=== PATIENT | female | born 2005 | race Hispanic/Latino ===

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

== ENCOUNTER 2023-05-05 18:31 | Emergency (ER) | payer SELFPAY ==
--- OUTSIDE RECORDS SUMMARY | 2023-05-05 18:33 | XMS REPORT | Continuity of Care Document ---
:2005 Author Organization [facility] t Address [address] [place] [address] Care Team Providers Name Role Phone ARSLAN RUBIN Attending Clinician Unavailable Problems This patient has no known problems. Allergies, Adverse Reactions, Alerts Allergy Allergy Status Severity Reaction(s) Onset Inactive Treating Comm ents Source Name Type Date Date Clinician NO KNOWN Drug [facility]ations This patient has no known medications. Procedures This patient has no known procedures. Encounters Start End Encounter Admission Attending Care Care Encounter Source Date/Time Date/Time Type Type Clinicians Facility Department ID 2019-09-15 2019-09-15 Emergency X KARIN RUBIN ERT [id number] [facility] 08:21:01 10:06:00 ARSLAN [facility] Results This patient has no known results.
--- NOTE | 2023-05-05 19:19 | ER ---
Nurse's Notes [facility] Name: Suzanne Hernandez Age: 17 yrs Sex: Female : 2005 Arrival Date: 05/05/2023 Time: 18:31 Bed DX4 Private MD: Diagnosis: Viral infection, unspecified Presentation: 05/05 18:40 Chief complaint: Patient states: Sore throat, not feeling well. Coronavirus screen: ld1 Vaccine status: Patient reports receiving the 2nd dose of the covid vaccine. Client denies travel out of the [place] in the last 14 days. fatigue, headache, sore throat. Ebola Screen: Patient denies travel to an Ebola-affected area in the 21 days before illness onset. Initial Sepsis Screen: Does the patient meet any 2 criteria? No. Patient's initial sepsis screen is negative. Does the patient have a suspected source of infection? Yes: Other: sore throat. Risk Assessment: Do you want to hurt yourself or someone else? Patient reports no desire to harm self or others. Onset of symptoms was May 04, 2023. 18:40 Method Of Arrival: Ambulatory ld1 18:40 Acuity: ANTIONE 4 ld1 Historical: - Allergies: 18:42 No Known Allergies; ld1 - PMHx: 18:42 allergies; ld1 - PSHx: 18:42 None; ld1 - Immunization history:: Adult Immunizations up to date, Client reports receiving the 2nd dose of the Covid vaccine. - Social history:: Smoking status: Reported history of juuling and/or vaping. Screenin:51 [facility] ED Fall Risk Assessment (Adult) History of falling in the last 3 months, kl including since admission No falls in past 3 months (0 pts) Confusion or Disorientation No (0 pts) Intoxicated or Sedated No (0 pts) Impaired Gait No (0 pts) Mobility Assist Device Used No (0 pt) Altered Elimination No (0 pt) Score/Fall Risk Level 0 - 2 = Low Risk Oriented to surroundings, Maintained a safe environment. Abuse screen: Denies threats or abuse. Nutritional screening: No deficits noted. Tuberculosis screening: No symptoms or risk factors identified. Assessment: 19:50 General: Appears in no apparent distress. comfortable, Behavior is calm, cooperative. kl Pain: Complains of pain in throat. Neuro: No deficits noted. Cardiovascular: No deficits noted. Respiratory: No deficits noted. GI: No deficits noted. No signs and/or symptoms were reported involving the gastrointestinal system. : No deficits noted. No signs and/or symptoms were reported regarding the genitourinary system. EENT: Reports difficulty swallowing. Vital Signs: 18:40 BP 127 / 75; Pulse 83; Resp 18; Temp 98.2; Pulse Ox 100% ; Weight 77.11 kg; Height 5 ld1 ft. 2 in. ; 18:40 Body Mass Index 31.09 (77.11 kg, 157.48 cm) - Percentile 94.6 % ld1 ED Course: 18:33 Patient arrived in ED. im 18:33 Clarisse Kumar FNP-C is [facility]. snw 18:33 Ronal Vickers MD is Attending Physician. snw 18:41 Triage completed. ld1 18:42 Arm band placed on. ld1 18:42 Strep Sent. ld1 18:42 Flu Sent. ld1 18:55 Strep Sent. kj1 18:55 Flu Sent. kj1 19:52 No provider procedures requiring assistance completed. Patient did not have IV access kl during this emergency room visit. Administered Medications: 19:37 Drug: Decadron - Dexamethasone IVP 10 mg IVP once; please give po in small amt kl juice/water {Note: po.} Route: IVP; Site: Other; 19:50 Follow up: Response: No adverse reaction Outcome: 19:19 Discharge ordered by . sn 19:52 Discharged to home ambulatory, 19:52 Condition: stable 19:52 Discharge instructions given to patient, Instructed on discharge instructions, follow up and referral plans. Demonstrated understanding of instructions, follow-up care, 19:52 Patient left the ED. kl Signatures: Aubree Fernandes, RN RN Clarisse Marion FNP-C FNP-[place] Elizabeth kj1 Linda Resendez RN RN ld1 Cheryl Whitehead
--- NOTE | 2023-05-05 19:20 | EDPHYS ---
Physician Documentation [facility] Name: Suzanne Hernandez Age: 17 yrs Sex: Female : 2005 Arrival Date: 05/05/2023 Time: 18:31 Bed DX4 Private MD: ED Physician Ronal Vickers HPI: 05/05 18:43 This 17 yrs old Female presents to ER via Ambulatory with complaints of Flu snw Symptoms. 18:43 The patient presents with sore throat. The patient describes throat pain as scratchy. snw Onset: The symptoms/episode began/occurred acutely, 3 day(s) ago, and became persistent. Associated signs and symptoms: Pertinent positives: flu-like symptoms, Sore throat. The patient has not experienced similar symptoms in the past, but friend has similar symptoms. The patient has not recently seen a physician. 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 Historical: - Allergies: 18:42 No Known Allergies; ld1 - PMHx: 18:42 allergies; ld1 - PSHx: 18:42 None; ld1 - Immunization history:: Adult Immunizations up to date, Client reports receiving the 2nd dose of the Covid vaccine. - Social history:: Smoking status: Reported history of juuling and/or vaping. ROS: 18:42 Eyes: Negative for injury, pain, redness, and discharge, snw 18:42 Neck: Negative for injury, pain, and swelling, Cardiovascular: Negative for chest pain, palpitations, and edema, Respiratory: Negative for shortness of breath, cough, wheezing, and pleuritic chest pain, Abdomen/GI: Negative for abdominal pain, nausea, vomiting, diarrhea, and constipation, Back: Negative for injury and pain, : Negative for injury, bleeding, discharge, and swelling, MS/Extremity: Negative for injury and deformity, Skin: Negative for injury, rash, and discoloration, Neuro: Negative for headache, weakness, numbness, tingling, and seizure, Psych: Negative for depression, anxiety, suicide ideation, homicidal ideation, and hallucinations, 18:42 Constitutional: Positive for body aches, malaise, 18:42 ENT: Positive for sinus congestion, sore throat, Exam: 18:41 Head/Face: Normocephalic, atraumatic. Eyes: Pupils equal round and reactive to light, snw extra-ocular motions intact. Lids and lashes normal. Conjunctiva and sclera are non-icteric and not injected. Cornea within normal limits. Periorbital areas with no swelling, redness, or edema. 18:41 Chest/axilla: Normal chest wall appearance and motion. Nontender with no deformity. No lesions are appreciated. Cardiovascular: Regular rate and rhythm with a normal S1 and S2. No gallops, murmurs, or rubs. Normal PMI, no JVD. No pulse deficits. Respiratory: Lungs have equal breath sounds bilaterally, clear to auscultation and percussion. No rales, rhonchi or wheezes noted. No increased work of breathing, no retractions or nasal flaring. Abdomen/GI: Soft, non-tender, with normal bowel sounds. No distension or tympany. No guarding or rebound. No evidence of tenderness throughout. Back: No spinal tenderness. No costovertebral tenderness. Full range of motion. Skin: Warm, dry with normal turgor. Normal color with no rashes, no lesions, and no evidence of cellulitis. MS/ Extremity: Pulses equal, no cyanosis. Neurovascular intact. Full, normal range of motion. Neuro: Awake and alert, GCS 15, oriented to person, place, time, and situation. Cranial nerves II-XII grossly intact. Motor strength 5/5 in all extremities. Sensory grossly intact. Cerebellar exam normal. Normal gait. 18:41 Constitutional: The patient appears alert, awake, 18:41 ENT: TM's: are normal, Nose: is normal, Posterior pharynx: swelling, that is mild, erythema, that is moderate, Voice: is normal, 18:41 Neck: Lymph nodes: lymphadenopathy is appreciated, anterior cervical nodes, Vital Signs: 18:40 BP 127 / 75; Pulse 83; Resp 18; Temp 98.2; Pulse Ox 100% ; Weight 77.11 kg; Height 5 ld1 ft. 2 in. ; 18:40 Body Mass Index 31.09 (77.11 kg, 157.48 cm) - Percentile 94.6 % ld1 MDM: 18:41 Patient medically screened. snw 19:20 Differential diagnosis: bronchitis, group A strep tonsillitis, influenza, viral snw syndrome. Data reviewed: vital signs, nurses notes. Counseling: I had a detailed discussion with the patient and/or guardian regarding the historical points, exam findings, and any diagnostic results supporting the discharge/admit diagnosis, lab results, the need for outpatient follow up, for definitive care, to return to the emergency department if symptoms worsen or persist or if there are any questions or concerns that arise at home. Special discussion: Based on the history and exam findings, there is no indication for further emergent testing or inpatient evaluation. I discussed with the patient/guardian the need to see the primary care provider for further evaluation of the symptoms. 05/05 18:40 Order name: Flu; Complete Time: 19:28 snw 05/05 18:40 Order name: Strep; Complete Time: 19:18 snw 05/05 19:16 Order name: Throat Culture EDMS Administered Medications: 19:37 Drug: Decadron - Dexamethasone IVP 10 mg IVP once; please give po in small amt kl juice/water {Note: po.} Route: IVP; Site: Other; 19:50 Follow up: Response: No adverse reaction kl Disposition: 20:17 Co-signature as Attending Physician, Ronal Vickers MD I reviewed the patient's care rt provided by the Advanced Practice Provider and agree with the diagnosis and treatment plan. Disposition Summary: 05/05/23 19:19 Discharge Ordered Notes: Location: Home snw Condition: Stable snw Diagnosis - Viral infection, unspecified snw Followup: snw - With: Emergency Department - When: As needed - Reason: Worsening of condition Followup: snw - With: Private Physician - When: 2 - 3 days - Reason: Recheck today's complaints, Continuance of care, Re-evaluation by your physician Discharge Instructions: - Discharge Summary Sheet snw - Viral Respiratory Infection snw Forms: - Work release form snw - Medication Reconciliation Form snw - Thank You Letter snw - Antibiotic Education snw - Prescription Opioid Use snw - Patient Portal Instructions snw - Leadership Thank You Letter snw Signatures: Dispatcher [employer] Aubree Sadler RN RN kl Waters, Shelly, FNP-C INTERNET SALES CONSULTANT-Csnw Linda Resendez RN RN [email or web address] Ronal Vickers MD MD rt
[2023-05-05] MEDS ORDERED: dexAMETHasone 10 MG/ML VIAL ONE (19:44)
[2023-05-05 21:37] VITALS: BP 127/75; TEMP 98.2; O2SAT 100
== END 2023-05-05 19:52 | disposition home or self-care (01) ==
LOC: ER 18:31
DX: B34.9 Viral infection, unspecified (principal)
CPT/HCPCS: 87070; 87081; 87804; 96374; 99284; J1100

== ENCOUNTER 2023-11-16 20:14 | Emergency (ER) | payer SELFPAY ==
--- OUTSIDE RECORDS SUMMARY | 2023-11-16 20:18 | XMS REPORT | Continuity of Care Document ---
Author Name Unknown Address [address] [facility] [address] [place] [address] [facility] thconnect Address [address] [facility] [address] [facility] [address] [place] [address] Care Team Providers Care First Grade Teacher Name Role Phone PCP, PATIENT DOES NOT HAVE A Primary Care Physic scooter Unavailable CRISTIAN CAMP Attending Clinician Unavailable Cristian Camp MD Attending Clinician ARSLAN LANDON Attending Clinician Unavailable Arslan Landon MD Attending Clinician [phone] Belinda Clarke DO Attending Clinician [phone] BELINDA CLARKE Attending Clinician Unavailable Payers Payer Name Policy Type Policy Number Effective Date Expirati on Date Source [facility] [id number] 2020 00:00:00 Allergies, Adverse Reactions, Alerts Allergy Name Allergy Type Status Severity Reaction(s) Onset Date Inactive Date Treating Clinician Comments Source NO KNOWN ALLERGIE S Drug Class Active [facility] Social History Social Habit Start Date Stop Date Quantity Comments Source [facility] 2023-10-12 00:00:00 2023-10-12 00:00:00 0 /d [facility] History of Social function 2023-10-12 00:00:00 2023-10-12 00:00:00 [facility] Sex Assigned At 2005 00:00:00 2005 00:00:00 [facility] Smoking Status Start Date Stop Date Source Never smoked tobacco [facility] Medications Ordered Medication Name Filled Medication Name Start Date Stop Date Current Medication? Ordering Clinician Indication Dosage Frequency Signature (SIG) Comments Components Source ketorolac (TORADOL) tablet 20 mg 06:30: 00 05:30 :00 No 20mg 20 mg, Oral, ONCE NOW, 1 dose, On Tue10/13/23 at 0030, AVINASH [facility] hyoscyamine sulfate (LEVSIN/SL) sublingual tablet 0.25 mg 06:30: 00 05:30 :00 No .25mg 0.25 mg, Sublingual , ONCE NOW, 1 dose, On Tue10/13/23 at 0030, Routine [facility] cephALEXin (KEFLEX) capsule 1,000 mg 05:45: 00 05:32 :00 No 1000mg 1,000 mg, Oral, ONCE, 1 dose, On Tue10/12/23 at 2345, AVINASH
Re ason for Anti-Infec tive: Documented Infection< br>Documen pascual Infection Site: Urine
D uration of Therapy: Other (see Comments) [facility] cefpodoxime 100 mg tablet 10-12 00:00: 00 Yes [id number] 100mg Take 1 tablet by mouth in the morning and 1 tablet in the evening. [facility] hyoscyamine sulfate (LEVSIN/SL) 0.125 mg sublingual tablet 10-12 00:00: [id number] 2 tablets under the tongue every 6 (six) hours as needed (Abdominal pain or cramping). [facility] ketorolac 10 mg tablet 10-12 00:00: 00 Yes [id number] 10mg Take 1 tablet by mouth every 6 (six) hours as needed for Pain (scale 4-6) or Pain (scale 7-10). [facility] naproxen (NAPROSYN) tablet 500 mg 2022-08 02:00: 00 06-19 01:25 :00 No 500mg 500 mg, Oral, ONCE NOW, 1 dose, On 06/18/23 at 2100, Routine [facility] naproxen sodium (ANAPROX DS) 550 mg tablet 2022-08 00:00: 00 Yes [id number] 550mg Take 1 tablet by mouth in the morning and 1 tablet in the evening. Take with meals. [facility] benzonatate 100 mg capsule 2022-08 00:00: 00 Yes [id number] 100mg Take 1 capsule by mouth 3 (three) times daily as needed for Cough. [facility] ondansetron 4 mg disintegrat ing tablet 2022-08 00:00: 00 Yes [id number] 4mg Take 1 tablet by mouth every 8 (eight) hours as needed for Nausea and Vomiting (N/V). [facility] butalbital- acetaminoph en-caff 50-325-40 mg tablet 09-15 00:00: 00 Yes [id number] 1{tbl} Take 1 tablet by mouth every 6 (six) hours as needed for Pain (scale 7-10) (Headache) . [facility] traMADOL (ULTRAM) 50 mg tablet 11-12 00:00: 00 Yes 50mg Take 1 tablet by mouth every 6 (six) hours as needed for Pain (scale 4-6). Earl Li PA-C / Scott Escalona MD HUMBERTO# [id number] DPS# [id number] Lic.# [id number] NPI# [id number] [facility] Vital Signs Vital Name Observation Time Observation Value Comments S ource BMI 2023-10-13 04:26:00 25.97 kg/m2 [facility] Oxygen saturation in Arterial blood by Pulse oximetry 2023-10-13 04:26:00 100 /min [facility] Systolic blood pressure 2023-10-13 04:26:00 114 mm[Hg] [facility] Diastolic blood pressure 2023-10-13 04:26:00 62 mm[Hg] [facility] Heart rate 2023-10-13 04:26:00 70 /min [facility] Body temperature 2023-10-13 04:26:00 36.94 Carolynn [facility] Respiratory rate 2023-10-13 04:26:00 18 /min [facility] Body height 2023-10-13 04:26:00 157.5 cm [facility] Body weight 2023-10-13 04:26:00 64.411 kg [facility] Systolic blood pressure 2023-08-13 03:20:00 113 mm[Hg] [facility] Diastolic blood pressure 2023-08-13 03:20:00 74 mm[Hg] [facility] Heart rate 2023-08-13 03:20:00 85 /min [facility] Body temperature 2023-08-13 03:20:00 37.39 Carolynn [facility] Respiratory rate 2023-08-13 03:20:00 16 /min [facility] Body height 2023-08-13 03:20:00 157.5 cm [facility] Body weight 2023-08-13 03:20:00 72.576 kg [facility] BMI 2023-08-13 03:20:00 29.26 kg/m2 [facility] Oxygen saturation in Arterial blood by Pulse oximetry 2023-08-13 03:20:00 100 /min [facility] Respiratory rate 2023-06-19 00:51:00 18 /min [facility] Body height 2023-06-19 00:51:00 157.5 cm [facility] Body weight 2023-06-19 00:51:00 75.297 kg [facility] BMI 2023-06-19 00:51:00 30.36 kg/m2 [facility] Oxygen saturation in Arterial blood by Pulse oximetry 2023-06-19 00:51:00 100 /min [facility] Systolic blood pressure 2023-06-19 00:51:00 129 mm[Hg] [facility] Diastolic blood pressure 2023-06-19 00:51:00 81 mm[Hg] [facility] Heart rate 2023-06-19 00:51:00 114 /min [facility] Body temperature 2023-06-19 00:51:00 38.11 Carolynn [facility] Procedures Procedure Date / Time Performed Performing Clinicia n Source ASSIGNMENT OF BENEFITS 2023-10-13 05:46:53 Docto r Unassigned, [place] [facility] POCT TEST 2023-10-13 04:45:00 Luisana Camp [facility] URINALYSIS 2023-10-13 04:30:00 Cristian Camp [facility] CONSENT/REFUSAL FOR DIAGNOSIS AND TREATMENT 2023-10-13 04:20:32 Doctor Unassigned, [place] [facility] POCT TEST 2023-08-13 04:57:00 Arslan Landon [facility] COMP. METABOLIC PANEL (55343) 2023-08-13 04:56:00 Arslan Landon [facility] CBC WITH DIFF 2023-08-13 04:56:00 Arslan [facility]andon [facility] URINALYSIS 2023-08-13 04:56:00 Arslan Landon [facility] CONSENT/REFUSAL FOR DIAGNOSIS AND TREATMENT 2023-08-13 02:59:29 Doctor Unassigned, [place] [facility] ASSIGNMENT OF BENEFITS 2023-06-19 01:32:35 Docto r Unassigned, [place] [facility] RAPID STREP SCREEN FOR GROUP A 2023-06-19 00:59:00 Belinda Clarke [facility] RAPID INFLUENZA A/B 2023-06-19 00:59:00 Roberth Clarke [facility] COVID-19 (ID NOW RAPID TESTING) 2023-06-19 00:59:00 Belinda Clarke [facility] NOTICE OF PRIVACY PRACTICES 2023-06-19 00:44:58 Doctor Unassigned, [place] [facility] CONSENT/REFUSAL FOR DIAGNOSIS AND TREATMENT 2023-06-19 00:44:29 Doctor Unassigned, [place] [facility] Encounters Start Date/Time End Date/Time Encounter Type Admission Type Attending [facility] Care Facility Care Department Encounter ID Source 2023-10-12 22:33:00 2023-10-12 23:49:00 Emergency X CRISTIAN CAMP [facility] ERT [id number] [facility] 2023-10-12 22:33:00 2023-10-12 23:49:00 Emergency Cristian Camp [facility] 1.2.840.114 350.1.13.10 4.2.7.2.686 [id number] [facility] 2023-08-12 21:23:00 2023-08-13 00:10:00 Emergency X ARSLAN LANDON [facility] ERT [id number] [facility] 2023-08-12 21:23:00 2023-08-13 00:10:00 Emergency Arslan Landon [facility] 1.2.840.114 350.1.13.10 4.2.7.2.686 [id number] [id number] [facility] 2023-06-18 19:54:00 2023-06-18 20:40:00 Emergency Belinda Clarke [facility] 1.2.840.114 350.1.13.10 4.2.7.2.686 [id number] [id number] [facility] 2023-06-18 19:54:00 2023-06-18 20:40:00 Emergency BELINDA RUBIO [facility] ERT [id number] [facility] 2019-09-15 08:21:01 2019-09-15 10:06:00 Emergency ARSLAN HUTCHINS [facility] ERT [id number] [facility] Results Test Description Test Time Test Comments Results Result Co mments Source [facility] (87663)2023-08-13 05:31:40* Test Item Value Reference Range Interpretation Comme nts NA (test code = 3087154537) 141 mmol/L 135-145 K (test code = 5039038496) 3.6 mmol/L 3.5-5.0 CL (test code = 6834004532) 107 mmol/L 98-108 CO2 TOTAL (test code = 0392027772) 26 mmol/L 23-31 AGAP (test code = 0345325625) 8 2-16 BUN (test code = 1420059835) 9 mg/dL 7-23 GLUCOSE (test code = 5125068522) 96 mg/dL 70-110 CREATININE (test code = 3024689470) 0.50 mg/dL 0.50-1.04 TOTAL BILI (test code = 1832868294) 0.4 mg/dL 0.1-1.1 CALCIUM (test code = 8827844894) 9.0 mg/dL 8.6-10.6 T PROTEIN (test code = 9986753590) 7.8 g/dL 6.3-8.2 ALBUMIN (test code = 6226894786) 4.4 g/dL 3.5-5.0 ALK PHOS (test code = 4134786471) 85 U/L 34-122 ALTv (test code = 1742-6) 16 U/L 5-35 AST(SGOT) (test code = 9992677213) 27 U/L 13-40 eGFR (test code = 03166-8) 138.8 mL/min/1.73m2 CKD-EPI eGFR (20 21). Assuming creatinine has been stable day-to-day for at least three months, the eGFR indicates Category G1 (>= 90 mL/min/1.73 m2) [facility] ZKJY6366-89-93 04:57:00* Test Item Value Reference Range Interpretation Comme nts POCT PREG (test code = 1605) Negative On board controls acceptable with C Line (test code = 3574) Yes Lab Interpretation (test cod e = 96636-3) Normal [facility] Notes Date/Time Note Provider Source 2023-10-12 23:44:16 TxtU4yU96OBk/J9PTW6kTabcqatRJ+gyyzwS5UvA E59tjLDesxNlvpS/9v93pMtu3253-07-31E53:44 :16 Pt given printed and verbal discharge instructions regarding dysuria/UTI, encouraged hydration,Prescriptions providedDiscussed ibuprofen and to take with food to avoid GI distress, alternate with Tylenol to help with pain and/or feverDiscussed antibiotic therapy and to take until all completed unless adverse reaction occurs - if occurs, discontinue medication and follow up with pcp/seek medical attentionPt verbalized understanding of instructions,pt encouraged to follow up with pcpAdvised to seek medical attention for new/prolonged/worsening of symptoms,No adverse reaction to meds given in ER noted upon dischargePIV d'cd, dressing to site, catheter in tact.Awake, alert oriented, resp reg unlabored, skin w/d, pt leaving in no apparent distress, 44431-0Wwvgdcwcv department SuggPS4051-66-40A39:44:43Emergency department NoteTXT1.2.840.931399.1.13.104.2.7.2.727 879|[id number] for patient jfib97933-3HkycMGKVHMWIKFOIqbcteoga C-CDA narrative text[address]Ip[id number] TYKOQELRWWCEUUSKNP4119-68-31X01:44:431.2 .840.790704.1.72.3.15|1.2.840.379661.1.1 3.104.2.7.2.727879_[id number] [facility] 2023-10-12 22:24:39 llp4U4PVd4ADvr52g4IlgQhrEwaNkcmIGkwNMefM /ehWlvepmedKBpEO+ITtoHm18716-74-93X57:24 :39 CC: "I have cramps since 7pm tonight. I had a UTI 2 days ago." Pt reports dysuria 2 days, but did not see a doctor or get abx. LMP 08/28/23. No OTC meds taken PTAPMHx: noneAwake, alert, oriented, resp reg unlabored, skin warm, color appropriate for race, moves all ext without difficulty, amb with steady gait 59903-2Uraqjahnu department Triage hilcBM6449-46-25T57:26:06[facility] Triage noteTXT1.2.840.353097.1.13.104.2.7.2.727 879|[id number] for patient munf80555-1Upkxsmidt department NoteLNNARRATIVEFormatted C-CDA narrative text[address] JmcwAsytecwcqIxdtocingJHEM5730584494MJGS AXJMMKWGDMTKRESFVC4594-58-64M61:26:061.2 .840.329123.1.72.3.15|1.2.840.477398.1.1 3.104.2.7.2.727879_[id number] [facility] 2023-10-12 22:15:00 ojYaECx4yX7KIenWos+Doi783Mal/oTJhomXh7m5 WYKua3WuAMaOqzRzM8vMfz2o1204-62-41X69:15 :00 [facility] Emergency Department NotePatient Name: Michaelle Hdz of : 2005 18 year old femaleTreatment Room: [facility] Record Number: [id number] Care Physician: PATIENT DOES NOT HAVE A PCPPatient Escorted by: Family [5]Mode of Arrival: Personal means [1]EMS Treatment Prior to ED Arrival:PHYSICIAN IN PRIVATE PRACTICE treatment: NoneTravel and Exposure Screening:SymptomsDoes patient have any of these symptoms?: (not recorded)Exposure ScreeningHas patient had contact with someone with a communicable disease in the last month?: (not recorded)Diseases exposed to:: (not recorded)Is Patient ?: (not recorded)Exposure Date: (not recorded)Chief Complaint:Chief ComplaintPatient presents withCRAMPSHistory of Present Illness:History provided by: PatientLanguage educational sign language interpreter used: NoAbdominal PainPain location: SuprapubicPain quality: aching, burning and crampingPain radiates to: Does not radiatePain severity: MildOnset quality: GradualDuration: 2 daysTiming: ConstantProgression: WorseningChronicity: NewContext: not alcohol use, not awakening from sleep, not diet changes, not eating, not laxative use, not medication withdrawal, not previous surgeries, not recent illness, not recent sexual activity, not recent travel, not retching and not suspicious food intakeRelieved by: None triedWorsened by: NothingIneffective treatments: None triedAssociated symptoms: dysuriaAssociated symptoms: no anorexia, no chest pain, no chills, no constipation, no cough, no fatigue, no fever, no hematemesis, no hematochezia, no hematuria, no nausea, no shortness of breath, no sore throat, no vaginal bleeding, no vaginal discharge and no vomitingPast Medical History/Immunizations:Past Medical History:Diagnosis DateADHD (attention deficit hyperactivity disorder)Tetanus received in last 5 years: NoAllergies:No Known AllergiesPast Social History:Tobacco UseNeverPast Surgical History:History reviewed. No pertinent surgical history.Review of Systems:Review of SystemsConstitutional: Negative for activity change, appetite change, chills, diaphoresis, fatigue and fever.HENT: Negative for congestion, ear discharge, ear pain, rhinorrhea, sore throat and trouble swallowing.Eyes: Negative for photophobia, pain, discharge and redness.Respiratory: Negative for cough, chest tightness, shortness of breath and wheezing.Cardiovascular: Negative for chest pain, palpitations and leg swelling.Gastrointestinal: Positive for abdominal pain. Negative for abdominal distention, anorexia, blood in stool, constipation, hematemesis, hematochezia, nausea and vomiting.Genitourinary: Positive for dysuria. Negative for urgency, polyuria, frequency, hematuria, flank pain, vaginal bleeding and vaginal discharge.Musculoskeletal: Negative for arthralgias, joint swelling, myalgias and neck stiffness.Skin: Negative for color change, rash and wound.Neurological: Negative for dizziness, seizures, syncope, facial asymmetry, weakness, light-headedness, numbness and headaches.Psychiatric/Behavioral: Negative for agitation, confusion, hallucinations and self-injury. The patient is not nervous/anxious.Hematological: Negative for adenopathy and cold intolerance. Does not bruise/bleed easily.Endocrine: Negative for cold intolerance, polydipsia and polyuria.Physical Exam:ED Triage Vitals [10/12/23 2226]Weight 64.4 kg (142 lb)Actual or estimated Estimated by patient/family reportHeight 1.575 m (5' 2")BP 114/62Pulse 70Resp 18Temp 36.9 ?C (98.5 ?F)Temp source OralSpO2 100 %Measured on Room airPhysical ExamVitals and nursing note reviewed.Constitutional:General: She is not in acute distress.Appearance: She is well-developed. She is not diaphoretic.HENT:Head: Normocephalic and atraumatic.Right Ear: External ear normal.Left Ear: External ear normal.Nose: Nose normal.Mouth/Throat:Pharynx: No oropharyngeal exudate.Eyes:General: No scleral icterus.Right eye: No discharge.Left eye: No discharge.Conjunctiva/sclera: Conjunctivae normal.Pupils: Pupils are equal, round, and reactive to light.Neck:Thyroid: No thyromegaly.Vascular: No JVD.Trachea: No tracheal deviation.Cardiovascular:Rate and Rhythm: Normal rate and regular rhythm.Heart sounds: Normal heart sounds. No murmur heard.No friction rub. No gallop.Pulmonary:Effort: Pulmonary effort is normal. No respiratory distress.Breath sounds: Normal breath sounds. No stridor. No wheezing or rales.Chest:Chest wall: No tenderness.Abdominal:General: Bowel sounds are normal. There is no distension.Palpations: Abdomen is soft. There is no mass.Tenderness: There is abdominal tenderness in the suprapubic area. There is no right CVA tenderness, left CVA tenderness, guarding or rebound.Musculoskeletal:General: No tenderness or deformity. Normal range of motion.Cervical back: Normal range of motion and neck supple.Lymphadenopathy:Cervical: No cervical adenopathy.Skin:General: Skin is warm and dry.Coloration: Skin is not pale.Findings: No erythema or rash.Neurological:Mental Status: She is alert and oriented to person, place, and time.Cranial Nerves: No cranial nerve deficit.Motor: No abnormal muscle tone.Coordination: Coordination normal.Deep Tendon Reflexes: Reflexes are normal and symmetric. Reflexes normal.Psychiatric:Behavior: Behavior normal.Thought Content: Thought content normal.Judgment: Judgment normal.Radiology:No orders to displayLab Results:Lab ResultsURINALYSIS - AbnormalResult Value Ref RangeAPPEARANCE Clear ClearCOLOR Yellow YellowPH 6.0 4.8 - 8.0SP GRAVITY 1.012 1.003 - 1.030GLU U QUAL Normal NormalBLOOD Negative NegativeKETONES Negative NegativePROTEIN Negative NegativeUROBILIN Normal NormalBILIRUBIN Negative NegativeNITRITE Negative NegativeLEUK GISSELLE 250/uL (*) NegativeRBC/HPF 2 0 - 3 HPFWBC/HPF 4 0 - 5 HPFBACTERIA Few (*) NegativeMUCOUS Slight (*) Negative LPFSQ EPITH 6 HPFPOCT TEST - NormalPOCT PREG NegativeOn board controls acceptable with C Line YesPOCT PREG LOT # [id number] PREG TEST DATE 09/19/2024EKG:If EKG completed, see Procedure Note.Orders and Treatments:Orders Placed This EncounterProceduresUrinalysisPOCT TestOrders Placed This EncounterMedicationshyoscyamine sulfate (LEVSIN/SL) sublingual tablet 0.25 mgketorolac (TORADOL) tablet 20 mgcephALEXin (KEFLEX) capsule 1,000 mgFirst Provider Eval:ED EventsDate/Time Event User Etlwltmz33/28/242219 Medical Screening Begins CRISTIAN CAMP MD --10/12/232219 First Provider Evaluation CRISTIAN CAMP MD --ED COURSEPatient's condition improved with the treatment provided in the ED, will DC Home on adequate medications to treat her condition.Diagnosis/Impression as of 10/12/23 2332DysuriaUrinary tract infection without hematuria, site unspecifiedProcedures:ProceduresMDM:[facility] Decision MakingProblems Addressed:Dysuria: self-limited or minor problemUrinary tract infection without hematuria, site unspecified: complicated acute illness or injury with systemic symptomsAmount and/or Complexity of Data ReviewedExternal Data Reviewed: labs and notes.Details: From previous visits reviewedLabs: ordered. Decision-making details documented in ED Course.RiskOTC drugs.Prescription drug management.Flowsheet Documentation:Scoring Tools:No data recordedDisposition/Condition:ED DispositionED DispositionDisch - HomeConditionStableComment--Discharge Medications:Patient's MedicationsSTART taking these medicationsNo medications on fileCONTINUE taking these medications which have NOT CHANGEDBENZONATATE 100 MG CAPSULE Take 1 capsule by mouth 3 (three) times daily as needed for Cough.EZGWERHWRK-EPNMDDZXHQOIY-ISXK 50-325-40 MG TABLET Take 1 tablet by mouth every 6 (six) hours as needed for Pain (scale 7-10) (Headache).NAPROXEN SODIUM (ANAPROX DS) 550 MG TABLET Take 1 tablet by mouth in the morning and 1 tablet in the evening. Take with meals.ONDANSETRON 4 MG DISINTEGRATING TABLET Take 1 tablet by mouth every 8 (eight) hours as needed for Nausea and Vomiting (N/V).TRAMADOL (ULTRAM) 50 MG TABLET Take 1 tablet by mouth every 6 (six) hours as needed for Pain (scale 4-6). Earl Li PA-C / Scott Escalona [facility]# [id number] DPS# [id number] Lic.# [id number] NPI# [id number] taking Modified Medications as PrescribedNo medications on fileSTOP taking these medicationsNo medications on fileFollow-up:Electronically signed by:Cristian Camp MD10/12/23 2332 90279-4Iyqwbinwu Emergency department JmheAH4281-31-37N16:32:10Physician Emergency department NoteTXT1.2.840.173339.1.13.104.2.7.2.727 879|[id number] for patient zypi61080-7Anrihitao department NoteLNNARRATIVEFormatted C-CDA narrative textUTPLAINS REG[facility] - [address] Oh[id number] MGRZNNUISJLOGZMVIJ5534-62-70T99:32:101.2 .840.499492.1.72.3.15|1.2.840.771873.1.1 3.104.2.7.2.727879_[id number] [facility] 2023-08-13 00:07:50 u8LeqY+n1EhYCWjzsrHhPxmvz3d33IacOrUI5exj JwnATXr/9VoVYo/yxnEs/7R39375-73-44S69:07 :50 Pt discharged home following ERP eval. Pt given all education and information regarding s/s of worsening condition, management and the importance of follow up. Pt verbalized understanding. Alert and ambulatory to pov with family. 10584-6Obenapnjr department RlzsSL5422-92-96A76:09:57Emerchi [facility] department NoteTXT1.2.840.355046.1.13.104.2.7.2.727 879|[id number] for patient sxcm96478-8KslyFRJJHDZDPDVWolshnhtw C-CDA narrative textUT[address] TwtgTjojuxgswFzxiiwwbhLVRZ5342459889JVPP TLPDYITLSCJSLGXLAR3217-53-66W16:09:571.2 .840.189510.1.72.3.15|1.2.840.350154.1.1 3.104.2.7.2.727879_[id number] [facility] 2023-08-12 21:19:19 H/E7NydApCef5L1CChASzCZtcEgwmfioXKdCm9hD 7scJLptsz2zRjs6n/Wa8IIlN2927-80-91Z58:19 :19 Pt to ed with family, alert and ambulatory. Vss. Pt states that she "almost fainted this morning while at work" but that she has no symptoms and feels fine now. Denies n/v/ or any sig medical hx. 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 93309-8Kftqssspb department Triage uwvgCQ4442-45-40S17:20:38[facility] Triage noteTXT1.2.840.437962.1.13.104.2.7.2.727 879|[id number] for patient xjpw45203-5Ituztlvsh department NoteLNNARRATIVEFormatted C-CDA narrative [id number] A Paul RN[address] Hkf[id number] LYLGBFRFNAULQFSSAD1741-23-09I53:20:381.2 .840.985903.1.72.3.15|1.2.840.991493.1.1 3.104.2.7.2.727879_[id number] Matthew Mulligan RN [facility] 2023-08-12 20:59:00 frjQtMmqL3uoTMcJPLULahsNxKM6TDkB7UH1dDFQ QpvlXOlyVIeYWXY6tfyzMWfm4669-47-21Z88:59 :00 [facility] Emergency Department NotePatient Name: Michaelle FoxDate of : 2005 17 year old femaleTreatment Room: [facility] Record Number: [id number] Care Physician: PATIENT DOES NOT HAVE A PCPPatient Escorted by: Family [5]Mode of Arrival: Personal means [1]EMS Treatment Prior to ED Arrival:PHYSICIAN IN PRIVATE PRACTICE treatment: NoneTravel and Exposure Screening:SymptomsDoes patient have any of these symptoms?: (not recorded)Exposure ScreeningHas patient had contact with someone with a communicable disease in the last month?: (not recorded)Diseases exposed to:: (not recorded)Is Patient ?: (not recorded)Exposure Date: (not recorded)Chief Complaint:Chief ComplaintPatient presents withOther" Almost fainted this morning, I feel fine now"History of Present Illness:Michaelle Fox is a 17 year old female is who presents to the ED for evaluation of a near-syncopal episode that occurred five times this morning 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 Currently pt is asymptomatic. Pt denies any chest pain. No SOB/Dyspnea. Had nausea at the time but currently totally asymptomatic. Has not had similar episode in the past. No UTI symptoms. Has cough X 3 days that is nonproductive. No sick contacts. No body aches reported. Pt thinks she was overheated at the time and the room was overheated at the daycare. LN June 2023 pt is irregular and preg test done at home today was negativeHistory provided by: Medical recordsLanguage educational sign language interpreter used: Michael Medical History/Immunizations:Past Medical History:Diagnosis DateADHD (attention deficit hyperactivity disorder)Pre-DiabetesTetanus received in last 5 years: UnknownChildhood immunizations: Jm-as-fwiuFisjzokhf:No Known AllergiesPast Social History:Tobacco UseNeverPast Surgical History:NoneReview of Systems:Review of SystemsConstitutional: Negative. Negative for chills, diaphoresis, fatigue and fever.HENT: Negative.Eyes: Negative.Respiratory: Negative.Breasts: Negative.Cardiovascular: Negative.Gastrointestinal: Negative.Genitourinary: Negative.Musculoskeletal: Negative.Skin: Negative.Neurological: Negative.Psychiatric/Behavioral: Negative.All other systems reviewed and are negative.Endocrine: Endocrine negativePhysical Exam:ED Triage Vitals [08/12/230]Weight 72.6 kg (160 lb)Actual or estimated ActualHeight 1.575 m (5' 2")BP 113/74Pulse 85Resp 16Temp 37.4 ?C (99.3 ?F)Temp source OralSpO2 100 %Measured on Room airPhysical ExamVitals and nursing note reviewed.Constitutional:General: She is not in acute distress.Appearance: Normal appearance. She is well-developed and normal weight. She is not ill-appearing, toxic-appearing or diaphoretic.HENT:Head: Normocephalic and atraumatic.Nose: Nose normal. No congestion or rhinorrhea.Mouth/Throat:Mouth: Mucous membranes are moist.Pharynx: Oropharynx is clear. No oropharyngeal exudate or posterior oropharyngeal erythema.Eyes:General: No scleral icterus.Right eye: No discharge.Left eye: No discharge.Extraocular Movements: Extraocular movements intact.Conjunctiva/sclera: Conjunctivae normal.Pupils: Pupils are equal, round, and reactive to light.Neck:Thyroid: No thyromegaly.Vascular: No carotid bruit.Cardiovascular:Rate and Rhythm: Normal rate and regular rhythm.Pulses: Normal pulses.Heart sounds: Normal heart sounds. No murmur heard.Pulmonary:Effort: Pulmonary effort is normal. No respiratory distress.Breath sounds: Normal breath sounds. No stridor. No wheezing or rales.Chest:Chest wall: No tenderness.Abdominal:General: Bowel sounds are normal. There is no distension.Palpations: Abdomen is soft. There is no mass.Tenderness: There is no abdominal tenderness. There is no right CVA tenderness, left CVA tenderness, guarding or rebound.Hernia: No hernia is present.Musculoskeletal:General: No swelling, tenderness, deformity or signs of injury. Normal range of motion.Cervical back: Normal range of motion and neck supple. No rigidity or tenderness.Lymphadenopathy:Cervical: No cervical adenopathy.Skin:General: Skin is warm and dry.Capillary Refill: Capillary refill takes less than 2 seconds.Coloration: Skin is not jaundiced or pale.Findings: No bruising, erythema, lesion or rash.Neurological:General: No focal deficit present.Mental Status: She is alert and oriented to person, place, and time.Cranial Nerves: No cranial nerve deficit.Sensory: No sensory deficit.Motor: No weakness or abnormal muscle tone.Gait: Gait normal.Deep Tendon Reflexes: Reflexes normal.Psychiatric:Mood and Affect: Mood normal.Behavior: Behavior normal.Thought Content: Thought content normal.Judgment: Judgment normal.Radiology:No orders to displayLab Results:Lab ResultsURINALYSIS - AbnormalResult Value Ref RangeAPPEARANCE Hazy (*) ClearCOLOR Yellow YellowPH 6.0 4.8 - 8.0SP GRAVITY 1.021 1.003 - 1.030GLU U QUAL Normal NormalBLOOD Negative NegativeKETONES Negative NegativePROTEIN Negative NegativeUROBILIN 4.0 mg/dL (*) NormalBILIRUBIN Negative NegativeNITRITE Negative NegativeLEUK GISSELLE 250/uL (*) NegativeRBC/HPF 5 (*) 0 - 3 HPFWBC/HPF 5 0 - 5 HPFBACTERIA Few (*) NegativeMUCOUS Slight (*) Negative LPFSQ EPITH 8 HPFPOCT TEST - NormalPOCT PREG NegativeOn board controls acceptable with C Line YesCBC WITH DIFFWBC 5.89 4.30 - 11.10 10*3/?LRBC 4.41 3.93 - 5.25 10*6/?LHGB 13.7 11.6 - 15.0 g/dLHCT 40.1 35.7 - 45.2 %MCV 90.9 80.6 - 95.5 fLMCH 31.1 25.9 - 32.8 pgMCHC 34.2 31.6 - 35.1 g/dLRDW-SD 40.3 39.0 - 49.9 fLRDW-CV 12.1 12.0 - 15.5 %PLT 219 166 - 358 10*3/?LMPV 10.1 9.5 - 12.9 fLNRBC/100 WBC 0.0 0.0 - 10.0 /100 WBCsNRBC x10^3 <0.01 10*3/?LGRAN MAT (NEUT) %IMM GRAN %LYMPH %MONO %EOS %BASO %GRAN MAT x10^3(ANC)IMM GRAN x10^3LYMPH x10^3MONO x10^3EOS x10^3BASO x10^3COMP. METABOLIC PANEL (23065)NA 141 135 - 145 mmol/LK 3.6 3.5 - 5.0 mmol/LCL 107 98 - 108 mmol/LCO2 TOTAL 26 23 - 31 mmol/LAGAP 8 2 - 16BUN 9 7 - 23 mg/dLGLUCOSE 96 70 - 110 mg/dLCREATININE 0.50 0.50 - 1.04 mg/dLTOTAL BILI 0.4 0.1 - 1.1 mg/dLCALCIUM 9.0 8.6 - 10.6 mg/Mayda PROTEIN 7.8 6.3 - 8.2 g/dLALBUMIN 4.4 3.5 - 5.0 g/dLALK PHOS 85 34 - 122 U/LALTv 16 5 - 35 U/LAST(SGOT) 27 13 - 40 U/LeGFR 138.8 mL/min/1.32c1Ssghje and Treatments:Orders Placed This EncounterProceduresCbc with DiffPOCT TESTUrinalysisComp. Metabolic Panel (40221)No orders of the defined types were placed in this encounter.First Provider Eval:ED EventsNoneED COURSEDiagnosis/Impression as of 08/12/232354Near syncopeProcedures:ProceduresMDM:Medical Decision MakingSacamiloglenn Fox is a 17 year old female who presents to the ED for evaluation of near-syncopal episodeProblems Addressed:Near syncope: acute illness or injuryDetails: Symptom resolvedWork-up as documentedWill refer to PCP for further evaluationAmount and/or Complexity of Data ReviewedLabs: ordered. Decision-making details documented in ED Course.ECG/medicine tests: independent interpretation performed. Decision-making details documented in ED Course.Details: EKG interpreted by ca asNSR, Sinus arrhythmiaRate [address] elevation or depressionNo acute findingsFlowsheet Documentation:Scoring Tools:No data recordedDisposition/Condition:ED DispositionED DispositionDisch - HomeConditionStableComment--Discharge Medications:Patient's MedicationsSTART taking these medicationsNo medications on fileCONTINUE taking these medications which have NOT CHANGEDBENZONATATE 100 MG CAPSULE Take 1 capsule by mouth 3 (three) times daily as needed for Cough.GHFCBLPXUX-[id number]-NRVY 50-325-40 MG TABLET Take 1 tablet by mouth every 6 (six) hours as needed for Pain (scale 7-10) (Headache).NAPROXEN SODIUM (ANAPROX DS) 550 MG TABLET Take 1 tablet by mouth in the morning and 1 tablet in the evening. Take with meals.ONDANSETRON 4 MG DISINTEGRATING TABLET Take 1 tablet by mouth every 8 (eight) hours as needed for Nausea and Vomiting (N/V).TRAMADOL (ULTRAM) 50 MG TABLET Take 1 tablet by mouth every 6 (six) hours as needed for Pain (scale 4-6). Earl Li PA-C / Scott Escalona [facility]# [id number] [facility]# [id number] Lic.# [id number] NPI# [id number] taking Modified Medications as PrescribedNo medications on fileSTOP taking these medicationsNo medications on fileFollow-up:Electronically signed by:Arslan Landon MD08/12/23 066 [id number] Emergency department [id number]:23Physician Emergency department [id number] for patient [id number] department NoteLNNARRATIVEFormatted C-CDA narrative text[address] H[id number] [id number]:55:231.2 [id number] [facility]
[2023-11-16] MEDS ORDERED: ONDANSETRON 4 MG/2 ML VIAL ONE (21:10)
[2023-11-16] MEDS ORDERED: NA CHLORIDE 0.9% 1,000 ML ONE (21:10)
[2023-11-16 21:34] LABS: Absolute Lymphocytes (CBC) 1.9 K/uL (0.7-4.9); Absolute Monocytes 0.8 K/uL (0.1-1.3); Absolute Neutrophil 6.5 K/uL (1.8-8.0); Basophils % 0.4 % (0-1.3); Eosinophils % 0.3 % (0-4.4); Hematocrit 38.2 % (36.0-45.0); Hemoglobin 13.3 g/dL (12.0-15.0); Lymphocytes % 20.4 % (15.3-44.8); MCHC 34.8 g/dL (32.0-36.0); MCV 92.1 fL (80-100); MPV 8.1 fL (7.6-11.3); Monocytes % 8.9 % (3.3-12.3); Nucleated Red Blood Cells % 0.1 % (0-0); Platelets 260 thou/uL (152-406); RBC Red Blood Cell Count 4.15 M/uL (3.86-4.86)
[2023-11-16 21:48] LABS: Specific Gravity 1.006 (1.005-1.030); Urine Bilirubin NEGATIVE (Negative); Urine Blood Negative (Negative); Urine Clarity Clear (Clear); Urine Color Colorless (Yellow); Urine Glucose NEGATIVE (Negative); Urine Ketones NEGATIVE (Negative); Urine Microscopic Reflex YN NO UMIC; Urine Nitrite NEGATIVE (Negative); Urine Protein NEGATIVE (Negative); Urine Urobilinogen Normal (Normal); Urine pH 6.5 (5.0-7.0)
[2023-11-16 21:49] LABS: Specific Gravity 1.006 (1.005-1.030)
[2023-11-16 21:56] LABS: Albumin 4.2 g/dL (3.4-5.0); Albumin/Globulin Ratio 1.1 (1.1-1.8); Anion Gap 6.5 mEq/L (5.0-15.0); Bilirubin Total 0.7 mg/dL (0.2-1.0); Globulin 3.7 g/dL (2.3-3.5); Potassium 3.5 mEq/L (3.5-5.1); Protein, Total 7.9 g/dL (6.4-8.2)
[2023-11-16] MEDS ORDERED: KETOROLAC 30 MG/ML INJ ONE (22:16)
--- NOTE | 2023-11-16 23:27 | EDPHYS ---
Physician Documentation [facility] Name: Suzanne Hernandez Age: 18 yrs Sex: Female : 2005 Arrival Date: 11/16/2023 Time: 20:14 Bed 7 Private MD: ED Physician Kalpesh Mason HPI: 11/15 23:19 This 18 yrs old Female presents to ER via Ambulatory with complaints of kb Abdominal Cramping, Nausea/Vomiting, UPPER BACK PAIN. 23:22 Pt is a 18 year old female who presents for lower abd cramping, nausea and vomiting kb that started one week ago. States she was supposed to start her period today and didn't she she was concerned about , but took 2 tests and they were negative. Denies fever, constipation or diarrhea. . Historical: - Allergies: 20:33 No Known Allergies; mb9 - Home Meds: 20:33 None [Active]; mb9 - PMHx: 20:33 allergies; mb9 - PSHx: 20:33 None; mb9 - Immunization history:: Adult Immunizations up to date. - Infectious Disease History:: Denies. - Social history:: Smoking status: Reported history of juuling and/or vaping. ROS: 23:19 Constitutional: As per HPI kb Exam: 23:19 Constitutional: This is a well developed, well nourished patient who is awake, alert, kb and in no acute distress. Head/Face: Normocephalic, atraumatic. ENT: Moist Mucous membranes Cardiovascular: Regular rate Respiratory: Respirations even and unlabored. No increased work of breathing. Talking in full sentences Skin: Warm, dry with normal turgor. Normal color. MS/ Extremity: Pulses equal, no cyanosis. Neurovascular intact. Full, normal range of motion. Neuro: Awake and alert, GCS 15, oriented to person, place, time, and situation. Moves all extremities. Normal gait. 23:19 Abdomen/GI: Inspection: abdomen appears normal, Bowel sounds: normal, Palpation: soft, in all quadrants, mild abdominal tenderness, in the right lower quadrant and left lower quadrant, Vital Signs: 20:31 Pulse 81; Resp 16; Temp 98.2; Pulse Ox 100% on R/A; Weight 67.59 kg; Height 5 ft. 2 in. mb9 ; Pain 8/10; 21:00 BP 108 / 63; Pulse 74; Resp 16 S; Pulse Ox 100% on R/A; lg3 22:30 BP 96 / 59; Pulse 75; Resp 16; Pulse Ox 100% on R/A; lg3 11/16 00:28 BP 101 / 64; Pulse 74; Resp 16 S; Temp 98(O); Pulse Ox 99% on R/A; lg3 11/15 20:31 Body Mass Index 27.25 (67.59 kg, 157.48 cm) mb9 11/15 20:31 Pain Scale: Adult mb9 MDM: 11/15 20:23 Patient medically screened. kb 23:20 Differential diagnosis: non-specific abd pain, urinary tract infection, . Data kb reviewed: vital signs, nurses notes. 23:23 ED course: Pt reported RUQ pain to nurse that radiates to shoulder blade, US ordered. . kb 23:26 Counseling: I had a detailed discussion with the patient and/or guardian regarding the kb historical points, exam findings, and any diagnostic results supporting the discharge/admit diagnosis, lab results, radiology results, the need for outpatient follow up, a family practitioner, to return to the emergency department if symptoms worsen or persist or if there are any questions or concerns that arise at home. 11/15 20:27 Order name: CBC with Diff; Complete Time: 21:38 kb 11/15 20:27 Order name: CMP; Complete Time: 21:58 kb 11/15 20:27 Order name: Lipase; Complete Time: 21:58 kb 11/15 20:27 Order name: Test, Urine; Complete Time: 21:50 kb 11/15 20:27 Order name: Urinalysis w/ reflexes; Complete Time: 21:49 kb 11/15 22:28 Order name: US Abdomen Limited kb 11/15 20:27 Order name: IV Saline Lock; Complete Time: 21:08 kb 11/15 20:27 Order name: Labs collected and sent; Complete Time: 21:08 kb Administered Medications: 21:13 Drug: NS 0.9% IV 1000 ml IV at 1 bolus Per protocol; 1000 mL bolus Route: IV; Rate: 1 cm10 bolus; Site: right antecubital; 22:50 Follow up: Response: No adverse reaction; IV Status: Completed infusion; IV Intake: lg3 1000ml 21:13 Drug: Ondansetron IVP 4 mg IVP once; over 2 minutes Route: IVP; Site: right antecubital;cm10 11/16 00:23 Follow up: Response: No adverse reaction lg3 11/15 22:20 Drug: Ketorolac IVP 15 mg IVP once Route: IVP; Site: right antecubital; lg3 11/16 00:23 Follow up: Response: No adverse reaction; Marked relief of symptoms lg3 00:23 Drug: Famotidine IVP 20 mg IVP once; dilute with 10 mL 0.9% NaCl; give over 2 minutes lg3 Route: IVP; Site: right antecubital; 00:28 Follow up: Response: No adverse reaction lg3 00:23 Drug: GI Cocktail without - (Maalox PO 30 ml, Lidocaine Mucous Membrane 2 % 15 lg3 ml) PO once Route: PO; 00:28 Follow up: Response: No adverse reaction lg3 Disposition: 03:17 Co-signature as Attending Physician, Kalpesh Mason MD I agree with the assessment sp4 and plan of care. I reviewed the patient's care provided by the Advanced Practice Provider and agree with the diagnosis and treatment plan. Disposition Summary: 11/16/23 23:26 Discharge Ordered Notes: Location: Home kb Condition: Stable kb Diagnosis - Abdominal pain, Generalized kb - Nausea with vomiting, unspecified kb Followup: kb - With: Emergency Department - When: As needed - Reason: Worsening of condition Followup: kb - With: Private Physician - When: 2 - 3 days - Reason: Recheck today's complaints, Continuance of care, Re-evaluation by your physician Discharge Instructions: - Discharge Summary Sheet kb - Nausea and Vomiting, Adult, Xjrp-od-Qymb kb - Abdominal Pain, Adult, Wdxy-hy-Nobj kb Forms: - Medication Reconciliation Form kb - Thank You Letter kb - Antibiotic Education kb - Prescription Opioid Use kb - Patient Portal Instructions kb - Leadership Thank You Letter kb Prescriptions: - Zofran 4 mg Oral tablet - take 1 tablet ORAL route every 6 hours As needed; 12 tablet; Refills: 0, kb Product Selection Permitted - dicyclomine 20 mg Oral tablet - take 1 tablet ORAL route 4 times per day As needed; 20 tablet; Refills: 0, kb Product Selection Permitted Signatures: Dispatcher [employer] EDMS Lilibeth Chandra, PAPER MACHINE SUPERVISOR-C PAPER MACHINE SUPERVISOR-Patsy Posey RN RN lg3 Kenneth, Arabella Hayden RN RN mb9 Kalpesh Mason MD MD sp4 Dinah Ochoa RN RN cm10 Corrections: (The following items were deleted from the chart) 11/15 20:33 20:33 Home Meds: Zyrtec 10 mg Oral tab 1 tab once daily; mb9 mb9 22:28 22:28 Abdomen Limited+US.RAD.BRZ ordered. EDMS EDMS
--- NOTE | 2023-11-16 23:27 | ER ---
Nurse's Notes [facility] Name: Suzanne Hernandez Age: 18 yrs Sex: Female : 2005 Arrival Date: 11/16/2023 Time: 20:14 Bed 7 Private MD: Diagnosis: Abdominal pain, Generalized;Nausea with vomiting, unspecified Presentation: 11/15 20:31 Chief complaint: Patient states: "I've had cramping, N/V, and pain in my shoulder mb9 blades for the past week". Coronavirus screen: At this time, the client does not indicate any symptoms associated with coronavirus-19. Ebola Screen: No symptoms or risks identified at this time. Initial Sepsis Screen: Does the patient meet any 2 criteria? No. Patient's initial sepsis screen is negative. Does the patient have a suspected source of infection? No. Patient's initial sepsis screen is negative. Risk Assessment: Do you want to hurt yourself or someone else? Patient reports no desire to harm self or others. Onset of symptoms was November 16, 2023. 20:31 Method Of Arrival: Ambulatory mb9 20:31 Acuity: ANTIONE 3 mb9 Triage Assessment: 20:33 General: Appears in no apparent distress. Behavior is calm, cooperative. Pain: mb9 Complains of pain in abdomen Pain radiates to back. Neuro: Level of Consciousness is awake, alert, obeys commands, Oriented to person, place, time, situation, Appropriate for age. Cardiovascular: Patient's skin is warm and dry. Respiratory: Airway is patent Respiratory effort is even, unlabored, Respiratory pattern is regular, symmetrical. GI: Abdomen is round non-distended, Reports lower abdominal pain, upper abdominal pain, nausea, vomiting. : No signs and/or symptoms were reported regarding the genitourinary system. Historical: - Allergies: 20:33 No Known Allergies; mb9 - Home Meds: 20:33 None [Active]; mb9 - PMHx: 20:33 allergies; mb9 - PSHx: 20:33 None; mb9 - Immunization history:: Adult Immunizations up to date. - Infectious Disease History:: Denies. - Social history:: Smoking status: Reported history of juuling and/or vaping. Screenin:00 [facility] ED Fall Risk Assessment (Adult) History of falling in the last 3 months, lg3 including since admission No falls in past 3 months (0 pts) Confusion or Disorientation No (0 pts) Intoxicated or Sedated No (0 pts) Impaired Gait No (0 pts) Mobility Assist Device Used No (0 pt) Altered Elimination Yes (1 pt) Score/Fall Risk Level 0 - 2 = Low Risk Oriented to surroundings, Maintained a safe environment, Educated pt \\T\\ family on fall prevention, incl call for assistance when getting out of bed, Assessed \\T\\ reinforced patient's understanding of fall precautions. Abuse screen: Denies threats or abuse. Denies injuries from another. Nutritional screening: No deficits noted. Tuberculosis screening: No symptoms or risk factors identified. Assessment: 21:00 General: Appears in no apparent distress. uncomfortable, Behavior is calm, cooperative. lg3 Pain: Complains of pain in abdomen Pain radiates to left subscapular area and right subscapular area Pain currently is 5 out of 10 on a pain scale. Quality of pain is described as crampy, squeezing. Neuro: No deficits noted. Strong Agitation-Sedation Scale (RASS): 0 - Alert and Calm Level of Consciousness is awake, alert, obeys commands, Oriented to person, place, time, situation. Cardiovascular: No deficits noted. Denies chest pain, shortness of breath, Capillary refill < 3 seconds Clubbing of nail beds is absent JVD is absent Patient's skin is warm and dry. Respiratory: No deficits noted. Airway is patent Respiratory effort is even, unlabored, Respiratory pattern is regular, symmetrical, Breath sounds are clear bilaterally. GI: Abdomen is round non-distended, Bowel sounds present X 4 quads. Abd is soft and non tender X 4 quads. Reports lower abdominal pain, upper abdominal pain, cramping, nausea, vomiting. : No deficits noted. No signs and/or symptoms were reported regarding the genitourinary system. EENT: No deficits noted. No signs and/or symptoms were reported regarding the EENT system. Derm: No deficits noted. No signs and/or symptoms reported regarding the dermatologic system. Skin is intact, is healthy with good turgor, Skin is dry, Skin is normal, Skin temperature is warm. Musculoskeletal: No deficits noted. No signs and/or symptoms reported regarding the musculoskeletal system. Circulation, motion, and sensation intact. Range of motion: intact in all extremities. 22:45 Reassessment: Patient appears in no apparent distress at this time. No changes from lg3 previously documented assessment. Patient and/or family updated on plan of care and expected duration. Pain level reassessed. Patient is alert, oriented x 3, equal unlabored respirations, skin warm/dry/pink. 11/16 00:29 Reassessment: Patient appears in no apparent distress at this time. Patient and/or lg3 family updated on plan of care and expected duration. Pain level reassessed. Patient is alert, oriented x 3, equal unlabored respirations, skin warm/dry/pink. Patient states feeling better. Patient states symptoms have improved. Vital Signs: 11/15 20:31 Pulse 81; Resp 16; Temp 98.2; Pulse Ox 100% on R/A; Weight 67.59 kg; Height 5 ft. 2 in. mb9 ; Pain 8/10; 21:00 BP 108 / 63; Pulse 74; Resp 16 S; Pulse Ox 100% on R/A; lg3 22:30 BP 96 / 59; Pulse 75; Resp 16; Pulse Ox 100% on R/A; lg3 11/16 00:28 BP 101 / 64; Pulse 74; Resp 16 S; Temp 98(O); Pulse Ox 99% on R/A; lg3 11/15 20:31 Body Mass Index 27.25 (67.59 kg, 157.48 cm) mb9 11/15 20:31 Pain Scale: Adult mb9 ED Course: 11/15 20:21 Patient arrived in ED. gm2 20:23 Lilibeth Chandra FNP-C [facility]. kb 20:23 Kalpesh Mason MD is Attending Physician. kb 20:31 Arm band placed on. mb9 20:33 Triage completed. mb9 21:00 Patient has correct armband on for positive identification. Placed in gown. Bed in low lg3 position. Call light in reach. Side rails up X 1. Client placed on continuous cardiac and pulse oximetry monitoring. NIBP monitoring applied. Door closed. Noise minimized. Warm blanket given. Family accompanied patient. 21:08 CBC with Diff Sent. cm10 21:08 CMP Sent. cm10 21:08 Lipase Sent. cm10 21:08 Test, Urine Sent. cm10 21:08 Urinalysis w/ reflexes Sent. cm10 21:08 Initial lab(s) drawn, by ga, sent to lab. Urine collected: clean catch specimen, clear. cm10 Inserted saline lock: 20 gauge in right antecubital area, using aseptic technique. Blood collected. 22:51 Abdomen Limited In Process Unspecified. EDMS 11/16 00:24 Patsy Gabriel, RN is Primary Nurse. lg3 00:31 No provider procedures requiring assistance completed. IV discontinued, intact, lg3 bleeding controlled, No redness/swelling at site. Pressure dressing applied. Administered Medications: 11/15 21:13 Drug: NS 0.9% IV 1000 ml IV at 1 bolus Per protocol; 1000 mL bolus Route: IV; Rate: 1 cm10 bolus; Site: right antecubital; 22:50 Follow up: Response: No adverse reaction; IV Status: Completed infusion; IV Intake: lg3 1000ml 21:13 Drug: Ondansetron IVP 4 mg IVP once; over 2 minutes Route: IVP; Site: right antecubital;cm10 11/16 00:23 Follow up: Response: No adverse reaction lg3 04 22:20 Drug: Ketorolac IVP 15 mg IVP once Route: IVP; Site: right antecubital; lg3 04 00:23 Follow up: Response: No adverse reaction; Marked relief of symptoms lg3 00:23 Drug: Famotidine IVP 20 mg IVP once; dilute with 10 mL 0.9% NaCl; give over 2 minutes lg3 Route: IVP; Site: right antecubital; 00:28 Follow up: Response: No adverse reaction lg3 00:23 Drug: GI Cocktail without - (Maalox PO 30 ml, Lidocaine Mucous Membrane 2 % 15 lg3 ml) PO once Route: PO; 00:28 Follow up: Response: No adverse reaction lg3 Medication: 00:29 VIS not applicable for this client. lg3 Intake: 11/15 22:50 IV: 1000ml; Total: 1000ml. lg3 Outcome: 23:26 Discharge ordered by MD. alexandra 11/16 00:31 Discharged to home ambulatory, lg3 Condition: stable Discharge instructions given to patient, Instructed on discharge instructions, follow up and referral plans. medication usage, Demonstrated understanding of instructions, follow-up care, medications, Prescriptions given X 2, 00:31 Patient left the ED. lg3 Signatures: Dispatcher [employer] EDMS Lilibeth Chandra, DARNELL LOPEZP-Patsy Posey RN RN lg3 Arabella Cooper RN RN mb9 Dinah Ochoa RN RN cm10 Altagracia Rosales 2 Corrections: (The following items were deleted from the chart) 11/15 20:33 20:33 Home Meds: Zyrtec 10 mg Oral tab 1 tab once daily; ramos beasley
[2023-11-17] MEDS ORDERED: FAMOTIDINE 20 MG/2 ML VIAL IV ONE (00:13)
[2023-11-17] MEDS ORDERED: MAGNES/ALUMIN/SIMET 30ML UCUP ONE (00:13)
[2023-11-17] MEDS ORDERED: LIDOCAINE VISCOUS 2% 10ML ORAL SOLN ONE (00:13)
[2023-11-17 00:59] VITALS: BP 101/64; TEMP 98; O2SAT 99
--- NOTE | 2023-11-17 10:44 | RAD REPORT ---
EXAM DESCRIPTION: US - Abdomen Exam Limited - 11/16/2023 10:49 pm CLINICAL HISTORY: 20 year-old female with abdominal pain. COMPARISON: None. TECHNIQUE: Olivarez scale sonography of the gallbladder. FINDINGS: LIVER: Limited visualization within normal limits morphology and echogenicity. GALLBLADDER: Within normal limits without gallbladder wall thickening pericholecystic fluid or ch olelithiasis. BILIARY TRACT: Limited visualization without significant abnormalities noted. IMPRESSION: No specific sonographic findings noted to suggest etiology of the patient's symptoms. Electronically signed by: Mariana Dobbs MD 11/16/2023 11:06 PM CDT Due to temporary technical issues with the PACS/Fluency reporting system, reports are being signed by the in house radiologist without review as a courtesy to ensure prompt reporting. The interpreting r adiologist is fully responsible for the content of the report.
== END 2023-11-17 00:31 | disposition home or self-care (01) ==
LOC: ER 20:14
DX: R10.84 Generalized abdominal pain (principal); R11.2 Nausea with vomiting, unspecified
CPT/HCPCS: 36415; 76705; 80053; 81003; 81025; 83690; 85025; 96361; 96374; 96375; 99284; J2405; J7030

== ENCOUNTER 2023-11-18 20:57 | Emergency (ER) | payer SELFPAY ==
--- OUTSIDE RECORDS SUMMARY | 2023-11-18 21:00 | XMS REPORT | Continuity of Care Document ---
Author Name Unknown Address [address] [place] [address] [facility] thconnect Address [address] [place] [address] Care Team Providers Care Domestic Violence Counselor Name Role Phone PCP, PATIENT DOES NOT HAVE A Primary Care Physic scooter Unavailable CRISTIAN CAMP Attending Clinician Unavailable Cristian Camp MD Attending Clinician ARSLAN LANDON Attending Clinician Unavailable Arslan Landon MD Attending Clinician [phone] Belinda Clarke DO Attending Clinician [phone] BELINDA CLARKE Attending Clinician Unavailable Payers Payer Name Policy Type Policy Number Effective Date Expirati on Date Source [facility] [id number] 2020 00:00:00 Allergies, Adverse Reactions, Alerts Allergy Name Allergy Type Status Severity Reaction(s) Onset Date Inactive Date Treating Clinician Comments Source NO KNOWN ALLERGIE S Drug Class Active [facility] Social History Social Habit Start Date Stop Date Quantity Comments Source [facility] 2023-10-12 00:00:00 2023-10-12 00:00:00 0 /d [facility] History of Social function 2023-10-12 00:00:00 2023-10-12 00:00:00 [facility] Sex Assigned At 2005 00:00:00 2005 00:00:00 [facility] Smoking Status Start Date Stop Date Source Never smoked tobacco [facility] Medications Ordered Medication Name Filled Medication Name Start Date Stop Date Current Medication? Ordering Clinician Indication Dosage Frequency Signature (SIG) Comments Components Source ketorolac (TORADOL) tablet 20 mg 06:30: 00 05:30 :00 No 20mg 20 mg, Oral, ONCE NOW, 1 dose, On Tue10/13/23 at 0030, AVINASH [facility] hyoscyamine sulfate (LEVSIN/SL) sublingual tablet 0.25 mg 06:30: 00 05:30 :00 No .25mg 0.25 mg, Sublingual , ONCE NOW, 1 dose, On Tue10/13/23 at 0030, Routine [facility] cephALEXin (KEFLEX) capsule 1,000 mg 05:45: 00 05:32 :00 No 1000mg 1,000 mg, Oral, ONCE, 1 dose, On Tue10/12/23 at 2345, AVINASH
Re ason for Anti-Infec tive: Documented Infection< br>Documen pascual Infection Site: Urine
D uration of Therapy: Other (see Comments) [facility] cefpodoxime 100 mg tablet 10-12 00:00: 00 Yes [id number] 100mg Take 1 tablet by mouth in the morning and 1 tablet in the evening. [facility] hyoscyamine sulfate (LEVSIN/SL) 0.125 mg sublingual tablet 10-12 00:00: [id number] 2 tablets under the tongue every 6 (six) hours as needed (Abdominal pain or cramping). [facility] ketorolac 10 mg tablet 10-12 00:00: 00 Yes [id number] 10mg Take 1 tablet by mouth every 6 (six) hours as needed for Pain (scale 4-6) or Pain (scale 7-10). [facility] naproxen (NAPROSYN) tablet 500 mg 2022-08 02:00: 00 06-19 01:25 :00 No 500mg 500 mg, Oral, ONCE NOW, 1 dose, On 06/18/23 at 2100, Routine [facility] naproxen sodium (ANAPROX DS) 550 mg tablet 2022-08 00:00: 00 Yes [id number] 550mg Take 1 tablet by mouth in the morning and 1 tablet in the evening. Take with meals. [facility] benzonatate 100 mg capsule 2022-08 00:00: 00 Yes [id number] 100mg Take 1 capsule by mouth 3 (three) times daily as needed for Cough. [facility] ondansetron 4 mg disintegrat ing tablet 2022-08 00:00: 00 Yes [id number] 4mg Take 1 tablet by mouth every 8 (eight) hours as needed for Nausea and Vomiting (N/V). [facility] butalbital- acetaminoph en-caff 50-325-40 mg tablet 09-15 00:00: 00 Yes [id number] 1{tbl} Take 1 tablet by mouth every 6 (six) hours as needed for Pain (scale 7-10) (Headache) . [facility] traMADOL (ULTRAM) 50 mg tablet 11-12 00:00: 00 Yes 50mg Take 1 tablet by mouth every 6 (six) hours as needed for Pain (scale 4-6). Earl Li PA-C / Scott Escalona MD [facility]# [id number] DPS# [id number] x Lic.# [id number] NPI# [id number] [facility] Vital Signs Vital Name Observation Time Observation Value Comments S ource BMI 2023-10-13 04:26:00 25.97 kg/m2 [facility] Oxygen saturation in Arterial blood by Pulse oximetry 2023-10-13 04:26:00 100 /min [facility] Systolic blood pressure 2023-10-13 04:26:00 114 mm[Hg] [facility] Diastolic blood pressure 2023-10-13 04:26:00 62 mm[Hg] [facility] Heart rate 2023-10-13 04:26:00 70 /min [facility] Body temperature 2023-10-13 04:26:00 36.94 Carolynn [facility] Respiratory rate 2023-10-13 04:26:00 18 /min [facility] Body height 2023-10-13 04:26:00 157.5 cm [facility] Body weight 2023-10-13 04:26:00 64.411 kg [facility] Systolic blood pressure 2023-08-13 03:20:00 113 mm[Hg] [facility] Diastolic blood pressure 2023-08-13 03:20:00 74 mm[Hg] [facility] Heart rate 2023-08-13 03:20:00 85 /min [facility] Body temperature 2023-08-13 03:20:00 37.39 Carolynn [facility] Respiratory rate 2023-08-13 03:20:00 16 /min [facility] Body height 2023-08-13 03:20:00 157.5 cm [facility] Body weight 2023-08-13 03:20:00 72.576 kg [facility] BMI 2023-08-13 03:20:00 29.26 kg/m2 [facility] Oxygen saturation in Arterial blood by Pulse oximetry 2023-08-13 03:20:00 100 /min [facility] Respiratory rate 2023-06-19 00:51:00 18 /min [facility] Body height 2023-06-19 00:51:00 157.5 cm [facility] Body weight 2023-06-19 00:51:00 75.297 kg [facility] BMI 2023-06-19 00:51:00 30.36 kg/m2 [facility] Oxygen saturation in Arterial blood by Pulse oximetry 2023-06-19 00:51:00 100 /min [facility] Systolic blood pressure 2023-06-19 00:51:00 129 mm[Hg] [facility] Diastolic blood pressure 2023-06-19 00:51:00 81 mm[Hg] [place] [facility] Heart rate 2023-06-19 00:51:00 114 /min [facility] Body temperature 2023-06-19 00:51:00 38.11 Carolynn [facility] Procedures Procedure Date / Time Performed Performing Clinicia n Source ASSIGNMENT OF BENEFITS 2023-10-13 05:46:53 Docto r Unassigned, [place] [facility] POCT TEST 2023-10-13 04:45:00 Luisana Camp [facility] URINALYSIS 2023-10-13 04:30:00 Cristian Camp [facility] CONSENT/REFUSAL FOR DIAGNOSIS AND TREATMENT 2023-10-13 04:20:32 Doctor Unassigned, [place] [facility] POCT TEST 2023-08-13 04:57:00 Arslan Landon [facility] COMP. METABOLIC PANEL (39747) 2023-08-13 04:56:00 Arslan Landon [facility] CBC WITH DIFF 2023-08-13 04:56:[address] [facility] URINALYSIS 2023-08-13 04:56:00 Arslan Landon [facility] CONSENT/REFUSAL FOR DIAGNOSIS AND TREATMENT 2023-08-13 02:59:29 Doctor Unassigned, [place] [facility] ASSIGNMENT OF BENEFITS 2023-06-19 01:32:35 Docto r Unassigned, [place] [facility] RAPID STREP SCREEN FOR GROUP A 2023-06-19 00:59:00 Belinda Clarke [facility] RAPID INFLUENZA A/B 2023-06-19 00:59:00 Roberth Clarke [facility] COVID-19 (ID NOW RAPID TESTING) 2023-06-19 00:59:00 Belinda Clarke [facility] NOTICE OF PRIVACY PRACTICES 2023-06-19 00:44:58 Doctor Unassigned, [place] [facility] CONSENT/REFUSAL FOR DIAGNOSIS AND TREATMENT 2023-06-19 00:44:29 Doctor Unassigned, [place] [facility] Encounters Start Date/Time End Date/Time Encounter Type Admission Type Attending [facility] Care Facility Care Department Encounter ID Source 2023-10-12 22:33:00 2023-10-12 23:49:00 Emergency X CRISTIAN CAMP [facility] ERT [id number] [facility] 2023-10-12 22:33:00 2023-10-12 23:49:00 Emergency Cristian Camp [facility] 1.2.840.114 350.1.13.10 4.2.7.2.686 [id number] [facility] 2023-08-12 21:23:00 2023-08-13 00:10:00 Emergency X ARSLAN LANDON [facility] ERT [id number] [facility] 2023-08-12 21:23:00 2023-08-13 00:10:00 Emergency Arslan Landon [facility] 1.2.840.114 350.1.13.10 4.2.7.2.686 [id number] [facility] 2023-06-18 19:54:00 2023-06-18 20:40:00 Emergency Belinda Clarke [facility] 1.2.840.114 350.1.13.10 4.2.7.2.686 [id number] [facility] 2023-06-18 19:54:00 2023-06-18 20:40:00 Emergency BELINDA RUBIO [facility] ERT [id number] [facility] 2019-09-15 08:21:01 2019-09-15 10:06:00 Emergency ARSLAN HUTCHINS [facility] ERT [id number] [facility] Results Test Description Test Time Test Comments Results Result Co mments Source [facility] (57087)2023-08-13 05:31:40* Test Item Value Reference Range Interpretation Comme nts NA (test code = 7105560583) 141 mmol/L 135-145 K (test code = 6288519900) 3.6 mmol/L 3.5-5.0 CL (test code = 8199760287) 107 mmol/L 98-108 CO2 TOTAL (test code = 4894519921) 26 mmol/L 23-31 AGAP (test code = 7615598585) 8 2-16 BUN (test code = 3326086181) 9 mg/dL 7-23 GLUCOSE (test code = 2431938914) 96 mg/dL 70-110 CREATININE (test code = 0916577334) 0.50 mg/dL 0.50-1.04 TOTAL BILI (test code = 4735036660) 0.4 mg/dL 0.1-1.1 CALCIUM (test code = 4621592627) 9.0 mg/dL 8.6-10.6 T PROTEIN (test code = 0105101447) 7.8 g/dL 6.3-8.2 ALBUMIN (test code = 9840929423) 4.4 g/dL 3.5-5.0 ALK PHOS (test code = 5528046064) 85 U/L 34-122 ALTv (test code = 1742-6) 16 U/L 5-35 AST(SGOT) (test code = 0183015581) 27 U/L 13-40 eGFR (test code = 27318-9) 138.8 mL/min/1.73m2 CKD-EPI eGFR (20 21). Assuming creatinine has been stable day-to-day for at least three months, the eGFR indicates Category G1 (>= 90 mL/min/1.73 m2) [facility] MHYU0686-60-17 04:57:00* Test Item Value Reference Range Interpretation Comme nts POCT PREG (test code = 1605) Negative On board controls acceptable with C Line (test code = 3574) Yes Lab Interpretation (test cod e = 83299-6) Normal [facility] Notes Date/Time Note Provider Source 2023-10-12 23:44:16 IliQ5oL52EYe/I8XCU1nMdrigcjXG+eiemkX6DiT N15opWPzuwMvtfC/4v13zWyq4846-61-17B51:44 :16 Pt given printed and verbal discharge [...] w/d, pt leaving in no apparent distress, 30004-2Fxjimpvse department UbssGV5963-38-91F49:44:43Emergency department NoteTXT1.2.840.484157.1.13.104.2.7.2.727 879|[id number] for patient hjwb17814-4ZypbWXZUTTXLKCVNfqincmxv C-CDA narrative text[address] Forbes StreetNhaiUrlidtnsnVulwkttfiZOMF8004184444JIRF QXGDQRCUZZJHADPRZC1057-59-13K80:44:431.2 .840.463384.1.72.3.15|1.2.840.173495.1.1 3.104.2.7.2.727879_[id number] [facility] 2023-10-12 22:24:39 vsm4K1NCn5LZfj85w5QecPhiQbuJzlgQQzuTUhyD /ehWlvepmedKBpEO+LVosSo48856-95-99K69:24 :39 CC: "I have cramps since 7pm tonight. I had a UTI 2 days ago." Pt reports dysuria 2 days, but did not see a doctor or get abx. LMP 08/28/23. No OTC meds taken PTAPMHx: noneAwake, alert, oriented, resp reg unlabored, skin warm, color appropriate for race, moves all ext without difficulty, amb with steady gait 43383-4Ooastpddr department Triage utluVX0609-58-25H71:26:06[facility] Triage noteTXT1.2.840.909633.1.13.104.2.7.2.727 879|[id number] for patient usbk82410-1Zhwuizgom department NoteLNNARRATIVEFormatted C-CDA narrative text[address] RjemClkgntxehVdwxdnycnQIND0304754101OTUW LZPIDZQGCGLOWGVVAY6168-89-00O33:26:061.2 .840.551868.1.72.3.15|1.2.840.692109.1.1 3.104.2.7.2.727879_[id number] [facility] 2023-10-12 22:15:00 ulBkMIb9dK2CImxNhf+Nyl237Sch/vRNiphNx6n0 LXCuc9LmAYeFedRvL9vAoz9h4708-86-59S69:15 :00 [facility] Emergency Department NotePatient Name: Michaelle Hdz of : 2005 18 year old femaleTreatment Room: [facility] Record Number: [id number] Care Physician: PATIENT DOES NOT HAVE A PCPPatient Escorted by: Family [5]Mode of Arrival: Personal means [1]EMS Treatment Prior to ED Arrival:GRADES 7 8 TUTOR treatment: NoneTravel and Exposure Screening:SymptomsDoes patient have any of these symptoms?: (not recorded)Exposure ScreeningHas patient had contact with someone with a communicable disease in the last month?: (not recorded)Diseases exposed to:: (not recorded)Is Patient ?: (not recorded)Exposure Date: (not recorded)Chief Complaint:Chief ComplaintPatient presents withCRAMPSHistory of Present Illness:History provided by: PatientLanguage field staff manager used: NoAbdominal PainPain location: SuprapubicPain quality: aching, [...] 1,000 mgFirst Provider Eval:ED EventsDate/Time Event User Dmhbsrxx94/28/242219 Medical Screening Begins CRISTIAN CAMP MD --10/12/232219 First Provider Evaluation CRISTIAN CAMP MD --ED COURSEPatient's condition improved with the treatment provided in the ED, will DC Home on adequate medications to treat her condition.Diagnosis/Impression as of 10/12/23 2332DysuriaUrinary tract infection without hematuria, site unspecifiedProcedures:ProceduresMDM:[facility] Decision MakingProblems Addressed:Dysuria: self-limited or [...] 3 (three) times daily as needed for Cough.ENSGJORDCR-POFQHTGJNMQLA-ZGFZ 50-325-40 MG TABLET Take 1 tablet by [...] 4-6). Earl Li PA-C / Scott Escalona [facility]# [id number] DPS# [id number] Lic.# [id number] NPI# [id number] taking Modified Medications as PrescribedNo medications on fileSTOP taking these medicationsNo medications on fileFollow-up:Electronically signed by:Cristian Camp MD10/12/23 2332 42054-4Vrciuyexh Emergency department QnqrTQ6591-43-55M09:32:10Physician Emergency department NoteTXT1.2.840.129357.1.13.104.2.7.2.727 879|[id number] for patient zpgz19035-6Nelwdirdp department NoteLNNARRATIVEFormatted C-CDA narrative textUTEASTERN NEW [facility] - [address] KdkpF[id number] IRPVGQNGPOFSHKPILV3925-66-50H62:32:101.2 .840.796532.1.72.3.15|1.2.840.614737.1.1 3.104.2.7.2.727879_[id number] [facility] 2023-08-13 00:07:50 u8LeqY+x3IoGBFmqwyZnIonqf1k54DcaXeTJ4znn JwnATXr/9VoVYo/yxnEs/8P87034-33-53C33:07 :50 Pt discharged home following ERP eval. Pt given all education and information regarding s/s of worsening condition, management and the importance of follow up. Pt verbalized understanding. Alert and ambulatory to pov with family. 70093-9Snezekpqw department RovjCU7088-24-64P86:09:57[facility] NoteTXT1.2.840.807819.1.13.104.2.7.2.727 879|[id number] for patient ynzv28648-5XkdkTUJXFHIUDZNCojvwbqmy C-CDA narrative textUT[address] VnmfItdiflozmUsxgvadtdXPSJ7592297514YZWN TUYSLUCEBNNRGECZAT6474-65-74K69:09:571.2 .840.972173.1.72.3.15|1.2.840.698792.1.1 3.104.2.7.2.727879_[id number] [facility] 2023-08-12 21:19:19 H/W8IvrCrQiq5I6EMyUYpXFcaGnlscvvQBhSb2vV 7ucBRssyv2zOxu1c/Im1RIgT6291-28-65F57:19 :19 Pt to ed with family, alert and ambulatory. Vss. Pt states that she "almost fainted this morning while at work" but that she has no symptoms and feels fine now. Denies n/v/ or any sig medical hx. 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 22105-3Glzuahcwa department Triage sgpdPY7593-95-07N34:20:38[facility] Triage noteTXT1.2.840.732135.1.13.104.2.7.2.727 879|[id number] for patient bqvt64135-3Jdjjbejza department NoteLNNARRATIVEFormatted C-CDA narrative [id number] A Paul RN[address] WaoxQzvzglhkeEpzfacotaIVID5710664325JNAZ IZQGDLGVPEKKHBVKDW8314-47-53M47:20:381.2 .840.771354.1.72.3.15|1.2.840.171050.1.1 3.104.2.7.2.727879_[id number] Matthew Mulligan RN [facility] 2023-08-12 20:59:00 vpwHkXmeW7tiBHlDZWJFkhlJmEG1FJrA9LU5sIXF QonhHCnkMRaEFQO9ypnaWPeg6960-04-18A29:59 :00 [facility] Emergency Department NotePatient Name: Michaelle FoxDate of : 2005 17 year old femaleTreatment Room: [facility] Record Number: [id number] Care Physician: PATIENT DOES NOT HAVE A PCPPatient Escorted by: Family [5]Mode of Arrival: Personal means [1]EMS Treatment Prior to ED Arrival:GRADES 7 8 TUTOR treatment: NoneTravel and Exposure Screening:SymptomsDoes patient have [...] today was negativeHistory provided by: Medical recordsLanguage field staff manager used: Michael Medical History/Immunizations:Past Medical History:Diagnosis DateADHD (attention deficit hyperactivity disorder)Pre-DiabetesTetanus received in last 5 years: UnknownChildhood immunizations: Zf-fv-rhmnUadoijwba:No Known AllergiesPast Social History:Tobacco UseNeverPast Surgical History:NoneReview [...] x10^3LYMPH x10^3MONO x10^3EOS x10^3BASO x10^3COMP. METABOLIC PANEL (62352)NA 141 135 - 145 mmol/LK 3.6 3.5 [...] U/LAST(SGOT) 27 13 - 40 U/LeGFR 138.8 mL/min/1.36k7Pcpvcp and Treatments:Orders Placed This EncounterProceduresCbc with DiffPOCT TESTUrinalysisComp. Metabolic Panel (49590)No orders of the defined types were placed [...] documented in ED Course.Details: EKG interpreted by nm asNSR, Sinus arrhythmiaRate [address] elevation or depressionNo acute findingsFlowsheet Documentation:Scoring Tools:No data recordedDisposition/Condition:ED DispositionED DispositionDisch - HomeConditionStableComment--Discharge Medications:Patient's MedicationsSTART taking these medicationsNo medications on fileCONTINUE taking these medications which have NOT CHANGEDBENZONATATE 100 MG CAPSULE Take 1 capsule by mouth 3 (three) times daily as needed for Cough.FFRMRLLIWX-CCQVMNBUJDKSV-HXKP 50-325-40 MG TABLET Take 1 tablet by [...] 4-6). Earl Li PA-C / Scott Escalona [facility] [id number] [facility]# [id number] Lic.# [id number] NPI# [id number] taking Modified Medications as PrescribedNo medications on fileSTOP taking these medicationsNo medications on fileFollow-up:Electronically signed by:Arslan Landon MD08/12/23 454 60816-6Tqrstydio Emergency department NwtuYV1910-06-80Q02:55:23Physician Emergency department NoteTXT1.2.840.307717.1.13.104.2.7.2.727 879|[id number] for patient frzz35484-0Jtjouxqct department NoteLNNARRATIVEFormatted C-CDA narrative textUT[address] IphaBwgomwwjdHoxeihsnnCXYR2584558489VSGR NGGZOEITBQKRPYHETY9267-40-92T79:55:231.2 .840.979541.1.72.3.15|1.2.840.166253.1.1 3.104.2.7.2.727879_[id number] [facility]
[2023-11-18] MEDS ORDERED: ONDANSETRON 4 MG/2 ML VIAL ONE (21:47)
[2023-11-18] MEDS ORDERED: NA CHLORIDE 0.9% 1,000 ML ONE (21:47)
[2023-11-18] MEDS ORDERED: KETOROLAC 30 MG/ML INJ ONE (21:47)
[2023-11-18 21:52] LABS: Absolute Lymphocytes (CBC) 1.3 K/uL (0.7-4.9); Absolute Monocytes 0.7 K/uL (0.1-1.3); Absolute Neutrophil 3.8 K/uL (1.8-8.0); Basophils % 0.4 % (0-1.3); Hematocrit 38.1 % (36.0-45.0); Hemoglobin 13.2 g/dL (12.0-15.0); Lymphocytes % 22.1 % (15.3-44.8); MCH 31.6 pg (27.0-35.0); MCHC 34.7 g/dL (32.0-36.0); Monocytes % 11.9 % (3.3-12.3); Neutrophils % 65.6 % (41.7-73.7); Platelets 220 thou/uL (152-406); RBC Red Blood Cell Count 4.19 M/uL (3.86-4.86); Red Cell Distribution Width 12.9 % (12.1-15.2); Specific Gravity 1.022 (1.005-1.030)
[2023-11-18 22:10] LABS: Anion Gap 6.3 mEq/L (5.0-15.0); Bilirubin Total 0.6 mg/dL (0.2-1.0); Globulin 3.9 g/dL (2.3-3.5); Potassium 3.3 mEq/L (3.5-5.1); Protein, Total 7.9 g/dL (6.4-8.2)
[2023-11-18 22:13] LABS: Specific Gravity 1.022 (1.005-1.030); Sqamous Epithelial <5 /HPF (None Seen); Urine Bacteria <20 /HPF (<20); Urine Bilirubin NEGATIVE (Negative); Urine Blood Negative (Negative); Urine Clarity Turbid (Clear); Urine Color Light-Yellow (Yellow); Urine Culture Reflex Order NOT NEEDED; Urine Glucose NEGATIVE (Negative); Urine Ketones NEGATIVE (Negative); Urine Microscopic Reflex YN ORDER UMIC; Urine Mucus 1+ /HPF (None Seen); Urine Nitrite NEGATIVE (Negative); Urine Protein TRACE (Negative); Urine Urobilinogen 1+ (Normal); Urine WBC <5 /HPF (<5); Urine pH 7.5 (5.0-7.0)
[2023-11-18] MEDS ORDERED: MORPHINE 4 MG/ML SYR ONE (23:02)
[2023-11-19] MEDS ORDERED: POTASSIUM 25 MEQ EFFERV TAB ONE (01:00)
--- NOTE | 2023-11-19 01:06 | ER ---
Nurse's Notes [facility] Name: Suzanne Hernandez Age: 18 yrs Sex: Female : 2005 Arrival Date: 11/18/2023 Time: 20:57 Bed 18 Private MD: Diagnosis: Lower abdominal pain, unspecified;Nausea;Other and unspecified ovarian cysts;Calculus of kidney-right Presentation: 11/17 21:06 Chief complaint: Patient states: right lower quadrant pain , fever, and nausea. ha1 21:06 Method Of Arrival: Ambulatory ha1 21:06 Coronavirus screen: Vaccine status: Patient reports receiving the 1st dose of the Covid ha1 vaccine. gantto. Ebola Screen: No symptoms or risks identified at this time. Initial Sepsis Screen: Does the patient meet any 2 criteria? No. Patient's initial sepsis screen is negative. Does the patient have a suspected source of infection? No. Patient's initial sepsis screen is negative. Risk Assessment: Do you want to hurt yourself or someone else? Patient reports no desire to harm self or others. Onset of symptoms was November 18, 2023. 21:06 Acuity: ANTIONE 3 ha1 Triage Assessment: 21:26 General: Appears comfortable, Behavior is calm, cooperative. Pain: Complains of pain in ha1 right lower quadrant Pain does not radiate. Pain currently is 8 out of 10 on a pain scale. Neuro: Level of Consciousness is awake, alert, obeys commands, Oriented to person, place, time, situation. Cardiovascular: Patient's skin is warm and dry. GI: Reports lower abdominal pain, nausea. Historical: - Allergies: 21:26 No Known Allergies; ha1 - PMHx: 21:26 allergies; seasonal; ha1 - Immunization history:: Adult Immunizations up to date. - Infectious Disease History:: Denies. - Social history:: Smoking status: Patient denies any tobacco usage or history of. Screenin:33 [facility] ED Fall Risk Assessment (Adult) History of falling in the last 3 months, cp4 including since admission No falls in past 3 months (0 pts) Confusion or Disorientation No (0 pts) Intoxicated or Sedated No (0 pts) Impaired Gait No (0 pts) Mobility Assist Device Used No (0 pt) Altered Elimination No (0 pt) Score/Fall Risk Level 0 - 2 = Low Risk Oriented to surroundings, Maintained a safe environment, Assessed \T\ reinforced patient's understanding of fall precautions, Hourly rounding (assess needs \T\ fall precautionary measures) done. Abuse screen: Denies threats or abuse. Nutritional screening: No deficits noted. Tuberculosis screening: No symptoms or risk factors identified. Assessment: 21:33 General: Appears uncomfortable, Behavior is calm, cooperative, appropriate for age. GI: cp4 Abdomen is round non-distended, Bowel sounds present X 4 quads. 22:10 General: Appears in no apparent distress. uncomfortable, Behavior is calm, cooperative. jw7 Pain: Complains of pain in right lower quadrant Pain does not radiate. Pain currently is 6 out of 10 on a pain scale. Quality of pain is described as throbbing. Neuro: Level of Consciousness is awake, alert, obeys commands, Oriented to person, place, time, situation. 22:10 Cardiovascular: Heart tones S1 S2 present Capillary refill < 3 seconds Clubbing of nail jw7 beds is absent JVD is absent Patient's skin is warm and dry. Respiratory: Airway is patent Trachea midline Respiratory effort is even, unlabored, Respiratory pattern is regular, symmetrical, Breath sounds are clear bilaterally. GI: Abdomen is round non-distended, Bowel sounds present X 4 quads. Abd is soft X 4 quads Abdomen is tender to palpation in right lower quadrant. : No deficits noted. No signs and/or symptoms were reported regarding the genitourinary system. EENT: No deficits noted. No signs and/or symptoms were reported regarding the EENT system. Derm: Skin is intact, is healthy with good turgor, Skin is dry, Skin is normal, Skin temperature is warm. Musculoskeletal: Circulation, motion, and sensation intact. Range of motion: intact in all extremities. 23:00 Reassessment: Patient appears in no apparent distress at this time. No changes from jw7 previously documented assessment. Patient and/or family updated on plan of care and expected duration. Pain level reassessed. Patient is alert, oriented x 3, equal unlabored respirations, skin warm/dry/pink. 04/ 00:00 Reassessment: Patient appears in no apparent distress at this time. Patient and/or jw7 family updated on plan of care and expected duration. Pain level reassessed. Patient is alert, oriented x 3, equal unlabored respirations, skin warm/dry/pink. Patient states symptoms have improved. 01:17 Reassessment: Patient appears in no apparent distress at this time. No changes from [facility] previously documented assessment. Patient and/or family updated on plan of care and expected duration. Pain level reassessed. Patient is alert, oriented x 3, equal unlabored respirations, skin warm/dry/pink. Vital Signs: 11/17 21:06 BP 128 / 89; Pulse 93; Resp 17; Temp 100.3; Pulse Ox 99% on R/A; Weight 65.77 kg; 1 Height 5 ft. 2 in. ; 22:00 BP 117 / 66; Pulse 81; Resp 16 S; Pulse Ox 100% on R/A; 7 11/18 00:00 BP 108 / 60; Pulse 89; Resp 16 S; Pulse Ox 99% on R/A; 7 01:17 BP 97 / 56; Pulse 75; Resp 16 S; Pulse Ox 100% on R/A; 7 11/17 21:06 Body Mass Index 26.52 (65.77 kg, 157.48 cm) [facility] ED Course: 11/17 20:59 Patient arrived in ED. im 21:06 Jeni Wright is Primary Nurse. cp4 21:11 Gregorio Pavon PA is PHCP. cp 21:11 Porfirio Penaloza MD is Attending Physician. cp 21:11 Ronal Vickers MD is Attending Physician. cp 21:26 Triage completed. 1 21:33 Bed in low position. Call light in reach. Side rails up X 1. cp4 21:33 No provider procedures requiring assistance completed. cp4 21:45 Initial lab(s) drawn, by ky, sent to lab. Urine collected: clean catch specimen, myah cp4 colored. Inserted saline lock: 20 gauge in right antecubital area, using aseptic technique. Blood collected. 21:46 CBC with Diff Sent. cp4 21:46 CMP Sent. cp4 21:46 Lipase Sent. cp4 21:46 Test, Urine Sent. cp4 21:46 Urinalysis w/ reflexes Sent. cp4 22:00 Report received from VICKY Ngo. jw7 22:00 Arm band placed on. jw7 22:00 Provided Education on: Use of Call Light. jw7 22:21 Primary Nurse role handed off by Jeni Wright6 22:49 Marilu Pinzon, RN is Primary Nurse. jw7 22:59 CT Abd/Pelvis - IV Contrast Only In Process Unspecified. EDMS 11/18 01:26 IV discontinued, intact, bleeding controlled, No redness/swelling at site. Pressure jw7 dressing applied. Administered Medications: 11/17 21:51 Drug: Ondansetron IVP 4 mg IVP once; over 2 minutes Route: IVP; Site: right antecubital;cp4 22:30 Follow up: Response: No adverse reaction; Marked relief of symptoms; Nausea is decreasedjw7 21:52 Drug: NS 0.9% IV 1000 ml IV at 1 bolus Per protocol; 1000 mL bolus Route: IV; Rate: 1 cp4 bolus; Site: right antecubital; 23:00 Follow up: Response: No adverse reaction; IV Status: Completed infusion; IV Intake: jw7 1000ml 21:52 Drug: Ketorolac IVP 15 mg IVP once Route: IVP; Site: right antecubital; cp4 22:30 Follow up: Response: No adverse reaction; Marked relief of symptoms; Pain is decreased jw7 11/18 01:20 Drug: Potassium PO Effervescent Tablet 50 mEq PO once; dissolve in 4 ounces of water or jw7 juice Route: PO; 01:33 Follow up: Response: No adverse reaction jw7 01:33 Not Given (Patient Refused): morphineor iv 4 mg IVP once over 4 mins jw7 Medication: 11/17 21:33 VIS not applicable for this client. cp4 Intake: 23:00 IV: 1000ml; Total: 1000ml. jw7 Outcome: 11/18 01:05 Discharge ordered by . cp 01:26 Discharged to home ambulatory, jw7 01:26 Condition: stable 01:26 Discharge instructions given to patient, Instructed on discharge instructions, follow up and referral plans. medication usage, Demonstrated understanding of instructions, follow-up care, medications, Prescriptions given X 2, 01:33 Patient left the ED. jw7 Signatures: Dispatcher [employer] EDKS Gregorio Pavon PA PA cp Slawson, Ashby, RN RN as6 Marilu Pinzon RN RN jw7 Lyndsay Reid RN RN ha1 Cheryl Whitehead Jeni Wright cp4 Corrections: (The following items were deleted from the chart) 11/17 21:31 21:06 Resp 17bpm; Pulse Ox 99% RA; Temp 100.3F; 65.77 kg; Height 5 ft. 2 in.; BMI: ha1 26.5; ha1 11/18 00:55 00:00 Reassessment: Patient appears in no apparent distress at this time. No changes jw7 from previously documented assessment. Patient and/or family updated on plan of care and expected duration. Pain level reassessed. Patient is alert, oriented x 3, equal unlabored respirations, skin warm/dry/pink. jw7
--- NOTE | 2023-11-19 01:06 | EDPHYS ---
Physician Documentation [facility] Name: Suzanne Hernandez Age: 18 yrs Sex: Female : 2005 Arrival Date: 11/18/2023 Time: 20:57 Bed 18 Private MD: ED Physician Ronal Vickers HPI: 11/17 21:35 This 18 yrs old Female presents to ER via Ambulatory with complaints of Fever, cp Nausea. 21:35 The patient reports fever, with an emergency department temperature of 100.3 degrees cp Fahrenheit. 21:35 Onset: The symptoms/episode began/occurred over 1 week ago. cp 21:35 Associated signs and symptoms: Pertinent positives: nausea, Pertinent negatives: cp diarrhea, vomiting. Severity of symptoms: in the emergency department the symptoms are unchanged despite home interventions. The patient has been recently seen at the [facility] Emergency Department, this week, for similar complaints an ultrasound was performed. Historical: - Allergies: 21:26 No Known Allergies; ha1 - PMHx: 21:26 allergies; seasonal; ha1 - Immunization history:: Adult Immunizations up to date. - Infectious Disease History:: Denies. - Social history:: Smoking status: Patient denies any tobacco usage or history of. ROS: 21:40 Constitutional: Negative for body aches, chills, poor PO intake, cp 21:40 Eyes: Negative for injury, pain, redness, and discharge, cp 21:40 ENT: Negative for drainage from ear(s), ear pain, sore throat, difficulty swallowing, difficulty handling secretions, 21:40 Cardiovascular: Negative for chest pain, palpitations, 21:40 Respiratory: Negative for cough, shortness of breath, wheezing, 21:40 Abdomen/GI: Positive for abdominal pain, nausea, Negative for vomiting, diarrhea, constipation, 21:40 : Negative for urinary symptoms, vaginal bleeding, vaginal discharge, 21:40 Neuro: Negative for altered mental status, headache, weakness, 21:40 All other systems are negative, Exam: 21:45 Constitutional: The patient appears in no acute distress, alert, awake, non-toxic, well cp developed, well nourished, 21:45 Head/Face: Normocephalic, atraumatic. cp 21:45 Eyes: Periorbital structures: appear normal, Conjunctiva: normal, no exudate, no injection, Sclera: no appreciated abnormality, Lids and lashes: appear normal, bilaterally, 21:45 ENT: External ear(s): are unremarkable, Nose: is normal, Mouth: Lips: moist, Oral mucosa: pink and intact, moist, Posterior pharynx: Airway: no evidence of obstruction, patent, 21:45 Chest/axilla: Inspection: normal, 21:45 Cardiovascular: Rate: normal, Rhythm: regular, 21:45 Respiratory: the patient does not display signs of respiratory distress, Respirations: normal, no use of accessory muscles, no retractions, labored breathing, is not present, Breath sounds: are clear throughout, no decreased breath sounds, no stridor, no wheezing, 21:45 Abdomen/GI: Inspection: abdomen appears normal, Bowel sounds: active, all quadrants, Palpation: soft, in all quadrants, moderate abdominal tenderness, in the right lower quadrant, rebound tenderness, is not appreciated, involuntary guarding, is not appreciated, 21:45 Back: CVA tenderness, is absent, Vital Signs: 21:06 BP 128 / 89; Pulse 93; Resp 17; Temp 100.3; Pulse Ox 99% on R/A; Weight 65.77 kg; ha1 Height 5 ft. 2 in. ; 22:00 BP 117 / 66; Pulse 81; Resp 16 S; Pulse Ox 100% on R/A; [facility] 04 00:00 BP 108 / 60; Pulse 89; Resp 16 S; Pulse Ox 99% on R/A; jw7 01:17 BP 97 / 56; Pulse 75; Resp 16 S; Pulse Ox 100% on R/A; [facility] 11/17 21:06 Body Mass Index 26.52 (65.77 kg, 157.48 cm) [facility] MDM: 11/17 21:11 Patient medically screened. 11/18 00:00 Differential diagnosis: appendicitis, uti, kidney stone, ovarian cyst. 01:05 Data reviewed: vital signs, nurses notes, lab test result(s), radiologic studies, CT scan. 01:05 I considered the following discharge prescriptions or medication management in the emergency department Medications were administered in the Emergency Department. See MAR. 01:05 Counseling: I had a detailed discussion with the patient and/or guardian regarding the historical points, exam findings, and any diagnostic results supporting the discharge/admit diagnosis, lab results, radiology results, to return to the emergency department if symptoms worsen or persist or if there are any questions or concerns that arise at home. Special discussion: Based on the patient's Hx, exam, and Dx evaluation, there is no indication for emergent surgery or inpatient Tx. It is understood by the patient/guardian that if the Sx's persist or worsen they need to return immediately for re-evaluation. 11/17 21:31 Order name: CBC with Diff; Complete Time: 22:29 cp 11/17 21:31 Order name: CMP; Complete Time: 22:29 cp 11/17 22:29 Interpretation: Normal except: K 3.3; BUN 6; GLOB 3.9; A/G 1.0. cp 11/17 21:31 Order name: Lipase; Complete Time: 22:29 cp 11/17 21:31 Order name: Test, Urine; Complete Time: 22:29 cp 11/17 21:31 Order name: Urinalysis w/ reflexes; Complete Time: 22:29 cp 11/18 00:46 Interpretation: Reviewed. 11/17 21:31 Order name: CT Abd/Pelvis - IV Contrast Only cp 11/17 21:31 Order name: IV Saline Lock; Complete Time: 21:46 cp 11/17 21:31 Order name: Labs collected and sent; Complete Time: 21:46 cp Administered Medications: 11/17 21:51 Drug: Ondansetron IVP 4 mg IVP once; over 2 minutes Route: IVP; Site: right antecubital;cp4 22:30 Follow up: Response: No adverse reaction; Marked relief of symptoms; [facility] 21[facility] Drug: NS 0.9% IV 1000 ml IV at 1 bolus Per protocol; 1000 mL bolus Route: IV; Rate: 1 cp4 bolus; Site: right antecubital; 23:00 Follow up: Response: No adverse reaction; IV Status: Completed infusion; IV Intake: jw7 1000ml 21:52 Drug: Ketorolac IVP 15 mg IVP once Route: IVP; Site: right antecubital; cp4 22:30 Follow up: Response: No adverse reaction; Marked relief of symptoms; Pain is decreased 7 11/18 01:20 Drug: Potassium PO Effervescent Tablet 50 mEq PO once; dissolve in 4 ounces of water or jw7 juice Route: PO; 01:33 Follow up: Response: No adverse reaction jw7 01:33 Not Given (Patient Refused): morphineor iv 4 mg IVP once over 4 mins jw7 Disposition: 11/19 00:52 Co-signature as Attending Physician, Ronal Vickers MD I reviewed the patient's care rt provided by the Advanced Practice Provider and agree with the diagnosis and treatment plan. Disposition Summary: 11/19/23 01:05 Discharge Ordered Notes: Location: Home cp Problem: new cp Symptoms: have improved cp Condition: Stable cp Diagnosis - Lower abdominal pain, unspecified cp - Nausea cp - Other and unspecified ovarian cysts cp - Calculus of kidney - right cp Followup: cp - With: Private Physician - When: 2 - 3 days - Reason: Recheck today's complaints Discharge Instructions: - Discharge Summary Sheet cp - Abdominal Pain, Adult cp - Kidney Stones cp - Nausea, Adult cp - Ovarian Cyst cp Forms: - Medication Reconciliation Form cp - Thank You Letter cp - Antibiotic Education cp - Prescription Opioid Use cp - Patient Portal Instructions cp - Leadership Thank You Letter cp Prescriptions: - Zofran 4 mg Oral Tablet - take 1 tablet ORAL route every 12 hours As needed; 20 tablet; Refills: 0, cp Product Selection Permitted - Diclofenac Sodium 75 mg Oral Tablet Sustained Release - take 1 tablet ORAL route 2 times per day; 30 tablet; Refills: 0, Product cp Selection Permitted Signatures: Dispatcher [employer] Gregorio Garcia PA PA cp Marilu Pinzon RN RN jw7 Lyndsay Reid RN RN ha1 Ronal Vickers MD MD rt Jeni Wright cp4
[2023-11-19 08:14] VITALS: BP 97/56; TEMP 100.3; O2SAT 100
--- NOTE | 2023-11-19 21:43 | RAD REPORT ---
EXAM DESCRIPTION: CT - Abdomen Pelvis W Contrast - 11/19/2023 6:42 am CLINICAL HISTORY: The patient is 18 years old and is Female; lower abdomen pain TECHNIQUE: Axial computed tomography images of the abdomen and pelvis with intravenous contrast. S agittal and coronal reformatted images were created and reviewed. This CT exam was performed using one or more of the following dose reduction techniques: automated exposure control, adjustment of t he mA and/or kV according to patient size, and/or use of iterative reconstruction technique. COMPARISON: No relevant prior studies available. FINDINGS: LUNG BASES: Minimal dependent densities in the lung bases are present. No consolidatio n. ABDOMEN: LIVER: The liver is mildly fatty and homogeneous. GALLBLADDER AND BILE DUCTS: The gallbladder is contracted. PANCREAS: No ductal dilation. No mass. SPLEEN: Unremarkable. ADRENALS: Unremarkable. No mass. KIDNEYS AND URETERS: Punctate right intrarenal calcification is present. The kidneys enhance symm etrically and are without hydronephrosis or hydroureter. No obstructing renal or ureteral calculus is seen. STOMACH AND BOWEL: The stomach is distended with food contents and air. The small bowel is normal in caliber. Stool and air noted throughout the colon. There is no mucosal thickening or evidence of obstruction. PELVIS: APPENDIX: The appendix is normal in caliber without surrounding inflammation. BLADDER: The bladder is incompletely distended. REPRODUCTIVE: Small bilateral ovarian cysts are present, the largest is on the left measuring 1.8 cm. No follow-up imaging is recommended. The uterus is unremarkable. ABDOMEN and PELVIS: INTRAPERITONEAL SPACE: Unremarkable. No free air. No significant fluid collection. BONES/JOINTS: No acute fracture. SOFT TISSUES: The soft tissues are normal. VASCULATURE: A few calcified phleboliths are present within the pelvis. No abdominal aortic ane urysm. LYMPH NODES: Unremarkable. No enlarged lymph nodes. IMPRESSION: No acute findings on this contrasted CT of the abdomen and pelvis to explain the patient 's symptoms. Electronically signed by: Anitha Edmond MD 11/18/2023 11:16 PM CDT Due to temporary technical issues with the PACS/Fluency reporting system, reports are being signed by the in house radiologists without review as a courtesy to insure prompt reporting. The interpreting radiologist is fully responsible for the content of the report.
== END 2023-11-19 01:33 | disposition home or self-care (01) ==
LOC: ER 20:57
DX: N20.0 Calculus of kidney (principal); N83.299 Other ovarian cyst, unspecified side; R11.0 Nausea
CPT/HCPCS: 36415; 74177; 80053; 81001; 81025; 83690; 85025; 96361; 96374; 96375; 99284; J2405; J7030; Q9967

== ENCOUNTER 2023-12-05 07:37 | Emergency (ER) | payer SELFPAY ==
--- OUTSIDE RECORDS SUMMARY | 2023-12-05 07:40 | XMS REPORT | Continuity of Care Document ---
Author Name Unknown Address [address] [facility] [address] [place] [address] [facility] thconnect Address [address] [facility] [address] [facility] [address] [place] [address] Care Team Providers Care Bookkeeper Name Role Phone PCP, PATIENT DOES NOT HAVE A Primary Care Physic scooter Unavailable CRISTIAN CAMP Attending Clinician Unavailable Cristian Camp MD Attending Clinician ARSLAN RUBIN Attending Clinician Unavailable Arslan Rubin MD Attending Clinician Belinda Sanchez DO Attending Clinician [phone] BELINDA SANCHEZ Attending Clinician Unavailable Payers Payer Name Policy Type Policy Number Effective Date Expirati on Date Source [facility] [id number] 2023 00:00:00 [facility] [id number] 2020 00:00:00 Allergies, Adverse Reactions, Alerts Allergy Name Allergy Type Status Severity Reaction(s) Onset Date Inactive Date Treating Clinician Comments Source NO KNOWN ALLERGIE S Drug Class Active [facility] Social History Social Habit Start Date Stop Date Quantity Comments Source Sexual orientation U [facility] Alcohol intake 2023-10-12 00:00:00 2023-10-12 00:00:00 0 /d [facility] History of Social function 2023-10-12 00:00:00 2023-10-12 00:00:00 [facility] Sex Assigned At 2005 00:00:00 2005 00:00:00 [facility] Smoking Status Start Date Stop Date Source Never smoked tobacco [facility] Medications Ordered Medication Name Filled Medication Name Start Date Stop Date Current Medication? Ordering Clinician Indication Dosage Frequency Signature (SIG) Comments Components Source ketorolac (TORADOL) tablet 20 mg 06:30: 00 05:30 :00 No 20mg 20 mg, Oral, ONCE NOW, 1 dose, On Tue10/13/23 at 0030, AVINASH [facility] hyoscyamine sulfate (LEVSIN/SL) sublingual tablet 0.25 mg 06:30: 00 05:30 :00 No .25mg 0.25 mg, Sublingual , ONCE NOW, 1 dose, On Tue10/13/23 at 0030, Routine [facility] cephALEXin (KEFLEX) capsule 1,000 mg 05:45: 00 05:32 :00 No 1000mg 1,000 mg, Oral, ONCE, 1 dose, On Tue10/12/23 at 2345, AVINASH
Re ason for Anti-Infec tive: Documented Infection< br>Documen pascual Infection Site: Urine
D uration of Therapy: Other (see Comments) [facility] cefpodoxime 100 mg tablet 10-12 00:00: 00 Yes [id number] 100mg Take 1 tablet by mouth in the morning and 1 tablet in the evening. [facility] hyoscyamine sulfate (LEVSIN/SL) 0.125 mg sublingual tablet 10-12 00:00: [id number] 2 tablets under the tongue every 6 (six) hours as needed (Abdominal pain or cramping). [facility] ketorolac 10 mg tablet 10-12 00:00: 00 Yes [id number] 10mg Take 1 tablet by mouth every 6 (six) hours as needed for Pain (scale 4-6) or Pain (scale 7-10). [facility] naproxen (NAPROSYN) tablet 500 mg 2022-08 02:00: 00 06-19 01:25 :00 No 500mg 500 mg, Oral, ONCE NOW, 1 dose, On 06/18/23 at 2100, Routine [facility] naproxen sodium (ANAPROX DS) 550 mg tablet 2022-08 00:00: 00 Yes [id number] 550mg Take 1 tablet by mouth in the morning and 1 tablet in the evening. Take with meals. [facility] benzonatate 100 mg capsule 2022-08 00:00: 00 Yes [id number] 100mg Take 1 capsule by mouth 3 (three) times daily as needed for Cough. [facility] ondansetron 4 mg disintegrat ing tablet 2022-08 00:00: 00 Yes [id number] 4mg Take 1 tablet by mouth every 8 (eight) hours as needed for Nausea and Vomiting (N/V). [facility] butalbital- acetaminoph en-caff 50-325-40 mg tablet 09-15 00:00: 00 Yes [id number] 1{tbl} Take 1 tablet by mouth every 6 (six) hours as needed for Pain (scale 7-10) (Headache) . [facility] traMADOL (ULTRAM) 50 mg tablet 11-12 00:00: 00 Yes 50mg Take 1 tablet by mouth every 6 (six) hours as needed for Pain (scale 4-6). Earl Li PA-C / Scott Escalona MD HUMBERTO# [id number] DPS# [id number] x Lic.# [id number] NPI# [id number] [facility] Vital Signs Vital Name Observation Time Observation Value Comments S ource BMI 2023-10-13 04:26:00 25.97 kg/m2 [facility] Oxygen saturation in Arterial blood by Pulse oximetry 2023-10-13 04:26:00 100 /min [facility] Systolic blood pressure 2023-10-13 04:26:00 114 mm[Hg] [facility] Diastolic blood pressure 2023-10-13 04:26:00 62 mm[Hg] [facility] Heart rate 2023-10-13 04:26:00 70 /min [facility] Body temperature 2023-10-13 04:26:00 36.94 [facility] Respiratory rate 2023-10-13 04:26:00 18 /min [facility] Body height 2023-10-13 04:26:00 157.5 cm [facility] Body weight 2023-10-13 04:26:00 64.411 kg [facility] Systolic blood pressure 2023-08-13 03:20:00 113 mm[Hg] [facility] Diastolic blood pressure 2023-08-13 03:20:00 74 mm[Hg] [facility] Heart rate 2023-08-13 03:20:00 85 /min [facility] Body temperature 2023-08-13 03:20:00 37.39 [facility] Respiratory rate 2023-08-13 03:20:00 16 /min [facility] Body height 2023-08-13 03:20:00 157.5 cm [facility] Body weight 2023-08-13 03:20:00 72.576 kg [facility] BMI 2023-08-13 03:20:00 29.26 kg/m2 [facility] Oxygen saturation in Arterial blood by Pulse oximetry 2023-08-13 03:20:00 100 /min [facility] Respiratory rate 2023-06-19 00:51:00 18 /min [facility] Body height 2023-06-19 00:51:00 157.5 cm [facility] Body weight 2023-06-19 00:51:00 75.297 kg [facility] BMI 2023-06-19 00:51:00 30.36 kg/m2 [facility] Oxygen saturation in Arterial blood by Pulse oximetry 2023-06-19 00:51:00 100 /min [facility] Systolic blood pressure 2023-06-19 00:51:00 129 mm[Hg] [facility] Diastolic blood pressure 2023-06-19 00:51:00 81 mm[Hg] [facility] Heart rate 2023-06-19 00:51:00 114 /min [facility] Body temperature 2023-06-19 00:51:00 38.11 [facility] Procedures Procedure Date / Time Performed Performing Clinicia n Source ASSIGNMENT OF BENEFITS 2023-10-13 05:46:53 Docto r Unassigned, [facility] POCT TEST 2023-10-13 04:45:00 Luisana Camp [facility] URINALYSIS 2023-10-13 04:30:00 Cristian Camp [facility] CONSENT/REFUSAL FOR DIAGNOSIS AND TREATMENT 2023-10-13 04:20:32 Doctor Unassigned, [facility] POCT TEST 2023-08-13 04:57:00 Arslan Rubin [facility] COMP. METABOLIC PANEL (94138) 2023-08-13 04:56:00 Arslan Rubin [facility] CBC WITH DIFF 2023-08-13 04:56:00 Arslan Rubin [facility] URINALYSIS 2023-08-13 04:56:00 Arslan Rubin [facility] CONSENT/REFUSAL FOR DIAGNOSIS AND TREATMENT 2023-08-13 02:59:29 Doctor Unassigned, [facility] ASSIGNMENT OF BENEFITS 2023-06-19 01:32:35 Docto r Unassigned, [facility] RAPID STREP SCREEN FOR GROUP A 2023-06-19 00:59:00 Belinda Sanchez [facility] RAPID INFLUENZA A/B 2023-06-19 00:59:00 Roberth Sanchez [facility] COVID-19 (ID NOW RAPID TESTING) 2023-06-19 00:59:00 Belinda Sanchez [facility] NOTICE OF PRIVACY PRACTICES 2023-06-19 00:44:58 Doctor Unassigned, [facility] CONSENT/REFUSAL FOR DIAGNOSIS AND TREATMENT 2023-06-19 00:44:29 Doctor Unassigned, [facility] Encounters Start Date/Time End Date/Time Encounter Type Admission Type Attending Clinicians Care Facility Care Department Encounter ID Source 2023-10-12 22:33:00 2023-10-12 23:49:00 Emergency X CRISTIAN CAMP [facility] ERT [id number] [facility] 2023-10-12 22:33:00 2023-10-12 23:49:00 Emergency Cristian Camp [facility] 1.2.840.114 350.1.13.10 4.2.7.2.686 [id number] [id number] [facility] 2023-08-12 21:23:00 2023-08-13 00:10:00 Emergency ARSLAN HUTCHINS [facility] ERT [id number] [facility] 2023-08-12 21:23:00 2023-08-13 00:10:00 Emergency Arslan Rubin [facility] 1.2.840.114 350.1.13.10 4.2.7.2.686 [id number] [id number] [facility] 2023-06-18 19:54:00 2023-06-18 20:40:00 [facility] 1.2.840.114 350.1.13.10 4.2.7.2.686 [id number] [id number] [facility] 2023-06-18 19:54:00 2023-06-18 20:40:00 Emergency BELINDA RUBIO [facility] ERT [id number] [facility] 2019-09-15 08:21:01 2019-09-15 10:06:00 Emergency ARSLAN HUTCHINS [facility] ERT [id number] [facility] Results Test Description Test Time Test Comments Results Result Co mments Source [facility] (12942)2023-08-13 05:31:40* Test Item Value Reference Range Interpretation Comme nts NA (test code = 4323469623) 141 mmol/L 135-145 K (test code = 2867448806) 3.6 mmol/L 3.5-5.0 CL (test code = 9176886864) 107 mmol/L 98-108 CO2 TOTAL (test code = 2450915587) 26 mmol/L 23-31 AGAP (test code = 6387908766) 8 2-16 BUN (test code = 1886546991) 9 mg/dL 7-23 GLUCOSE (test code = 6200405040) 96 mg/dL 70-110 CREATININE (test code = 8889394132) 0.50 mg/dL 0.50-1.04 TOTAL BILI (test code = 0736600912) 0.4 mg/dL 0.1-1.1 CALCIUM (test code = 8347054096) 9.0 mg/dL 8.6-10.6 T PROTEIN (test code = 4406588938) 7.8 g/dL 6.3-8.2 ALBUMIN (test code = 3543080242) 4.4 g/dL 3.5-5.0 ALK PHOS (test code = 9942779521) 85 U/L 34-122 ALTv (test code = 1742-6) 16 U/L 5-35 AST(SGOT) (test code = 7682589247) 27 U/L 13-40 eGFR (test code = 00963-8) 138.8 mL/min/1.73m2 CKD-EPI eGFR (20 21). Assuming creatinine has been stable day-to-day for at least three months, the eGFR indicates Category G1 (>= 90 mL/min/1.73 m2) [facility] H[facility]BA0358-85-01 04:57:00* Test Item Value Reference Range Interpretation Comme nts POCT PREG (test code = 1605) Negative On board controls acceptable with C Line (test code = 3574) Yes Lab Interpretation (test cod e = 55524-6) [facility] Notes Date/Time Note Provider Source 2023-10-12 23:44:16 AqbW2nL33TUr/H9PCH7uNizezcdFA+wpozzO1FpV M44haWHxlhQqyxP/5s98aDvp8071-41-05J59:44 :16 Pt given printed and verbal discharge [...] w/d, pt leaving in no apparent distress, [address]-8Girqlpwje department BowiMK2065-25-34C42:44:43[facility] NoteTXT1.2.840.699824.1.13.104.2.7.2.727 879|[id number] for patient lnxb44524-2TxogQQPDLBQQAFRHwgyworbm C-CDA narrative text[address] CblcTkhvhpuseXyzfcgfsoGDYV5952493437UBSM PVUTHHAUOTGNLHNGDR6898-13-61K30:44:431.2 .840.848918.1.72.3.15|1.2.840.346736.1.1 3.104.2.7.2.727879_[id number] [facility] 2023-10-12 22:24:39 ibe8Z0YMd3AIkr87m6GqyLvsVfuUycoYGghAGtpE /ehWlvepmedKBpEO+UFqjBn36331-89-38E04:24 :39 CC: "I have cramps since 7pm tonight. I had a UTI 2 days ago." Pt reports dysuria 2 days, but did not see a doctor or get abx. LMP 08/28/23. No OTC meds taken PTAPMHx: noneAwake, alert, oriented, resp reg unlabored, skin warm, color appropriate for race, moves all ext without difficulty, amb with steady gait 33952-6Dmmyxydyx department Triage zwalUF1243-66-98G47:26:06[facility] Triage noteTXT1.2.840.310341.1.13.104.2.7.2.727 879|[id number] for patient ozmr63182-2Payzmitbi department NoteLNNARRATIVEFormatted C-CDA narrative text[address] NloqFsuuylvyjLfmylmzlrYFUX3480598048HTTY NPAGTPYQGZNTGZUQPY6964-09-63G82:26:061.2 .840.170325.1.72.3.15|1.2.840.891255.1.1 3.104.2.7.2.727879_[id number] [facility] 2023-10-12 22:15:00 bePdXSj2mH4DRndNdj+Clo608Fas/kWOjbsLx0k9 LKPmz8CjMIjZftYfT3dSth9l4035-19-04R43:15 :00 [facility] Emergency Department NotePatient Name: Michaelle Hdz of : 2005 18 year old femaleTreatment Room: [facility] Record Number: [id number] Care Physician: PATIENT DOES NOT HAVE A PCPPatient Escorted by: Family [5]Mode of Arrival: Personal means [1]EMS Treatment Prior to ED Arrival:COLORED LEATHER SETTER treatment: NoneTravel and Exposure Screening:SymptomsDoes patient have any of these symptoms?: (not recorded)Exposure ScreeningHas patient had contact with someone with a communicable disease in the last month?: (not recorded)Diseases exposed to:: (not recorded)Is Patient ?: (not recorded)Exposure Date: (not recorded)Chief Complaint:Chief ComplaintPatient presents withCRAMPSHistory of Present Illness:History provided by: PatientLanguage printed circuit designer used: NoAbdominal PainPain location: SuprapubicPain quality: aching, [...] 1,000 mgFirst Provider Eval:ED EventsDate/Time Event User Clgnyqoi42/28/242219 Medical Screening Begins CRISTIAN CAMP MD --10/12/232219 First Provider Evaluation CIRSTIAN CAMP MD --ED COURSEPatient's condition improved with the treatment provided in the ED, will DC Home on adequate medications to treat her condition.Diagnosis/Impression as of 10/12/23 2332DysuriaUrinary tract infection without hematuria, site unspecifiedProcedures:ProceduresMDM:[facility] Decision MakingProblems Addressed:Dysuria: self-limited or minor problemUrinary [...] 3 (three) times daily as needed for Cough.BZPQBTEHQU-KHHSGJQMDVBYJ-BMUX 50-325-40 MG TABLET Take 1 tablet by [...] 4-6). Earl Li PA-C / Scott Escalona [facility]# [id number] DPS# [id number] Lic.# [id number] NPI# [id number] taking Modified Medications as PrescribedNo medications on fileSTOP taking these medicationsNo medications on fileFollow-up:Electronically signed by:Cristian Camp MD10/12/23 2332 15132-0Ckdcommhk Emergency department AxokDW7952-06-94N96:32:10Physician Emergency department NoteTXT1.2.840.947606.1.13.104.2.7.2.727 879|[id number] for patient jzbj44997-1Whyqhpuzp department NoteLNNARRATIVEFormatted C-CDA narrative text[address] IvgmIzlfgnrpzBzyvkrjcyUDDL2060094363JTHS VWOOUNRJDEWTDJARHO2999-79-66Z65:32:101.2 .840.763476.1.72.3.15|1.2.840.443431.1.1 3.104.2.7.2.727879_[id number] [facility] 2023-08-13 00:07:50 u8LeqY+k4LoANVbdqhVoPwlko3o33KmcKsJP4qhq JwnATXr/9VoVYo/yxnEs/0B68785-71-68J38:07 :50 Pt discharged home following ERP eval. Pt given all education and information regarding s/s of worsening condition, management and the importance of follow up. Pt verbalized understanding. Alert and ambulatory to pov with family. 58954-5Otlihopce department EcsmVM2714-09-29B65:09:57Ememulticare health department NoteTXT1.2.840.285037.1.13.104.2.7.2.727 879|[id number] for patient jshm64903-7IjtwEYSIUZRUOGSIhsvixkqr C-CDA narrative [address]ZegvOuxqqifwdYjvdmblnfHUWZ2573932466BYSW KSFBUTACUJSEKZQKMK7437-78-09O84:09:571.2 .840.587620.1.72.3.15|1.2.840.552702.1.1 3.104.2.7.2.727879_[id number] [facility] 2023-08-12 21:19:19 H/H4WfaLkVya8J2KVbGNkIZzhCfyswppXBfSm5sU 4jpYRijut3cEwn8j/Zr4ARdP2395-50-90N93:19 :19 Pt to ed with family, alert and ambulatory. Vss. Pt states that she "almost fainted this morning while at work" but that she has no symptoms and feels fine now. Denies n/v/ or any sig medical hx. 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 37978-9Nemfcjzeg department Triage cjlaIS7405-50-86Y50:20:38[facility]memulticare health department Triage noteTXT1.2.840.763989.1.13.104.2.7.2.727 879|[id number] for patient erfu40004-9Rryyozexj department NoteLNNARRATIVEFormatted C-CDA narrative wfjx601012866Wyeaqb A Paul RN37 Thomas StreetTXTX7755577555USUS BLIHMSRHLPDMWSBXDI0613-58-31L89:20:381.2 .840.022037.1.72.3.15|1.2.840.951052.1.1 3.104.2.7.2.727879_[id number] Matthew Mulligan RN [facility] 2023-08-12 20:59:00 pqbLeDrtX6ogGIaYVJHSdhcMgKD6ZAaW5KR7iNIL ApqlCTmfMUjXRIL1sshqJPmq6765-36-20X17:59 :00 [facility] Emergency Department NotePatient Name: Michaelle Hdz of : 2005 17 year old femaleTreatment Room: [facility] ED [facility] Record Number: [id number] Care Physician: PATIENT DOES NOT HAVE A PCPPatient Escorted by: Family [5]Mode of Arrival: Personal means [1]EMS Treatment Prior to ED Arrival:COLORED LEATHER SETTER treatment: NoneTravel and Exposure Screening:SymptomsDoes patient have any of these symptoms?: (not recorded)Exposure ScreeningHas patient had contact with someone with a communicable disease in the last month?: (not recorded)Diseases exposed to:: (not recorded)Is Patient ?: (not recorded)Exposure Date: (not recorded)Chief Complaint:Chief ComplaintPatient presents withOther" Almost fainted this morning, I feel fine now"History of Present Illness:Michaelle Hernandez is a 17 year old female is [...] the room was overheated at the daycare. LNMP June 2023 pt is irregular and preg test done at home today was negativeHistory provided by: Medical recordsLanguage printed circuit designer used: Michael Medical History/Immunizations:Past Medical History:Diagnosis DateADHD (attention deficit hyperactivity disorder)Pre-DiabetesTetanus received in last 5 years: UnknownChildhood immunizations: Kj-ma-tkctPjcbyptpm:No Known AllergiesPast Social History:Tobacco UseNeverPast Surgical History:NoneReview of Systems:Review of SystemsConstitutional: Negative. Negative for chills, diaphoresis, fatigue and fever.HENT: Negative.Eyes: Negative.Respiratory: Negative.Breasts: Negative.Cardiovascular: Negative.Gastrointestinal: Negative.Genitourinary: Negative.Musculoskeletal: Negative.Skin: Negative.Neurological: Negative.Psychiatric/Behavioral: Negative.All other systems reviewed and are negative.Endocrine: Endocrine negativePhysical Exam:ED Triage Vitals [08/12/232119]Weight 72.6 kg (160 lb)Actual or estimated ActualHeight [...] x10^3LYMPH x10^3MONO x10^3EOS x10^3BASO x10^3COMP. METABOLIC PANEL (04606)NA 141 135 - 145 mmol/LK 3.6 3.5 [...] U/LAST(SGOT) 27 13 - 40 U/LeGFR 138.8 mL/min/1.54q8Qfgszd and Treatments:Orders Placed This EncounterProceduresCbc with DiffPOCT TESTUrinalysisComp. Metabolic Panel (74614)No orders of the defined types were placed in this encounter.First Provider Eval:ED EventsNoneED COURSEDiagnosis/Impression as of 08/12/23 2355Near syncopeProcedures:ProceduresMDM:Medical Decision MakingSanathalia Hernandez is a 17 year old female who presents to the ED for evaluation of near-syncopal episodeProblems Addressed:Near syncope: acute illness or injuryDetails: Symptom resolvedWork-up as documentedWill refer to PCP for further evaluationAmount and/or Complexity of Data ReviewedLabs: ordered. Decision-making details documented in ED Course.ECG/medicine tests: independent interpretation performed. Decision-making details documented in ED Course.Details: EKG interpreted by ok asNSR, Sinus arrhythmiaRate [address] elevation or depressionNo acute findingsFlowsheet Documentation:Scoring Tools:No data recordedDisposition/Condition:ED DispositionED DispositionDisch - HomeConditionStableComment--Discharge Medications:Patient's MedicationsSTART taking these medicationsNo medications on fileCONTINUE taking these medications which have NOT CHANGEDBENZONATATE 100 MG CAPSULE Take 1 capsule by mouth 3 (three) times daily as needed for Cough.KFULMROURV-DCOPQKLMQLJYW-FUMS 50-325-40 MG TABLET Take 1 tablet by [...] 4-6). Earl Li PA-C / Scott Escalona [facility]# [id number] DPS# [id number] Lic.# [id number] NPI# [id number] taking Modified Medications as PrescribedNo medications on fileSTOP taking these medicationsNo medications on fileFollow-up:Electronically signed by:Arslan Rubin MD08/12/23 2355 08457-0Kmlbjyreu Emergency department PvsmCY1616-74-60R39:55:23Physician Emergency department NoteTXT1.2.840.119844.1.13.104.2.7.2.727 879|[id number] for patient bozw35874-5Lxspqvgjh department NoteLNNARRATIVEFormatted C-CDA narrative text[address] AeyiQqjasbtctDhhtjszguRZHZ0054342750CTTB GXUYGUIOYZVYFGMRXB7392-69-01Q58:55:231.2 .840.876440.1.72.3.15|1.2.840.297107.1.1 3.104.2.7.2.727879_[id number] [facility]
[2023-12-05] MEDS ORDERED: FAMOTIDINE 20 MG/2 ML VIAL IV ONE (08:04)
[2023-12-05] MEDS ORDERED: ONDANSETRON 4 MG/2 ML VIAL ONE (08:04)
[2023-12-05 08:10] LABS: Specific Gravity 1.027 (1.005-1.030)
[2023-12-05 08:13] LABS: Absolute Basophils 0.1 K/uL (0-0.5); Absolute Eosinophils 0.1 K/uL (0-0.5); Absolute Lymphocytes (CBC) 2.2 K/uL (0.7-4.9); Absolute Monocytes 0.7 K/uL (0.1-1.3); Absolute Neutrophil 3.7 K/uL (1.8-8.0); Basophils % 0.9 % (0-1.3); Eosinophils % 1.2 % (0-4.4); Hematocrit 38.9 % (36.0-45.0); Hemoglobin 13.5 g/dL (12.0-15.0); Lymphocytes % 32.5 % (15.3-44.8); MCH 31.6 pg (27.0-35.0); MCHC 34.7 g/dL (32.0-36.0); MPV 7.9 fL (7.6-11.3); Monocytes % 10.3 % (3.3-12.3); Neutrophils % 55.1 % (41.7-73.7); Nucleated Red Blood Cells % 0.5 % (0-0); Platelets 291 thou/uL (152-406); RBC Red Blood Cell Count 4.27 M/uL (3.86-4.86); Red Cell Distribution Width 12.8 % (12.1-15.2)
[2023-12-05 08:14] LABS: Specific Gravity 1.027 (1.005-1.030); Urine Bacteria <20 /HPF (<20); Urine Bilirubin NEGATIVE (Negative); Urine Blood 2+ (Negative); Urine Clarity Extremely Turbid (Clear); Urine Color Yellow (Yellow); Urine Culture Reflex Order REFLEXED; Urine Glucose NEGATIVE (Negative); Urine Ketones NEGATIVE (Negative); Urine Microscopic Reflex YN ORDER UMIC; Urine Mucus 2+ /HPF (None Seen); Urine Nitrite NEGATIVE (Negative); Urine Protein 1+ (Negative); Urine RBC 21-50 /HPF (None Seen); Urine Urobilinogen 1+ (Normal); Urine WBC 20-50 /HPF (<5)
[2023-12-05 08:28] LABS: Albumin 3.9 g/dL (3.4-5.0); Anion Gap 7.5 mEq/L (5.0-15.0); Bilirubin Total 0.7 mg/dL (0.2-1.0); Globulin 3.8 g/dL (2.3-3.5); Potassium 3.5 mEq/L (3.5-5.1); Protein, Total 7.7 g/dL (6.4-8.2)
[2023-12-05] MEDS ORDERED: LIDOCAINE VISCOUS 2% 10ML ORAL SOLN ONE (10:16)
[2023-12-05] MEDS ORDERED: MAGNES/ALUMIN/SIMET 30ML UCUP ONE (10:16)
--- NOTE | 2023-12-05 10:34 | ER ---
Nurse's Notes [facility] Name: Suzanne Hernandez Age: 18 yrs Sex: Female : 2005 Arrival Date: 12/05/2023 Time: 07:37 Bed 7 Private MD: Diagnosis: Upper abdominal pain, unspecified Presentation: 12/04 07:41 Chief complaint: Patient states: "I've been feeling nauseated for a while now but I did aa5 throw up twice last night". Pt also reports pain to [facility]. 07:41 Coronavirus screen: At this time, the client does not indicate any symptoms associated aa5 with coronavirus-19. Ebola Screen: Patient denies travel to an Ebola-affected area in the 21 days before illness onset. Initial Sepsis Screen: Does the patient meet any 2 criteria? No. Patient's initial sepsis screen is negative. Does the patient have a suspected source of infection? No. Patient's initial sepsis screen is negative. Risk Assessment: Do you want to hurt yourself or someone else? Patient reports no desire to harm self or others. Onset of symptoms was November 2023. 07:41 Acuity: ANTIONE 3 aa5 07:41 Method Of Arrival: Ambulatory aa5 METHODS AND PROCEDURES ANALYST: 07:41 LMP 10/2023, unknown aa5 Historical: - Allergies: 07:47 No Known Allergies; aa5 - PMHx: 07:47 None; aa5 - PSHx: 07:47 None; aa5 - Immunization history:: Adult Immunizations unknown. - Infectious Disease History:: Denies. - Social history:: Smoking status: Reported history of juuling and/or vaping. Screenin:09 [facility] ED Fall Risk Assessment (Adult) History of falling in the last 3 months, ld1 including since admission No falls in past 3 months (0 pts). Abuse screen: Denies threats or abuse. Denies injuries from another. Nutritional screening: No deficits noted. Tuberculosis screening: No symptoms or risk factors identified. Assessment: 08:09 General: Appears in no apparent distress. comfortable, Behavior is calm, cooperative, ld1 appropriate for age. Pain: Complains of pain in abdomen Pain does not radiate. Pain currently is 8 out of 10 on a pain scale. Quality of pain is described as throbbing, Pain began suddenly, Is continuous. Neuro: Level of Consciousness is awake, alert, obeys commands, Oriented to person, place, time, situation. Cardiovascular: Capillary refill < 3 seconds Patient's skin is warm and dry. Respiratory: Airway is patent Respiratory effort is even, unlabored. GI: Abdomen is round non-distended. GI: Reports epigastric pain, nausea. : No signs and/or symptoms were reported regarding the genitourinary system. EENT: No signs and/or symptoms were reported regarding the EENT system. Derm: No signs and/or symptoms reported regarding the dermatologic system. Musculoskeletal: No signs and/or symptoms reported regarding the musculoskeletal system. 10:41 Reassessment: Patient appears in no apparent distress at this time. No changes from mb9 previously documented assessment. Patient and/or family updated on plan of care and expected duration. Pain level reassessed. Patient is alert, oriented x 3, equal unlabored respirations, skin warm/dry/pink. Vital Signs: 07:41 BP 117 / 72; Pulse 63; Resp 18 S; Temp 97.8(TE); Pulse Ox 98% on R/A; aa5 08:09 BP 109 / 66; Pulse 56; Resp 18; Pulse Ox 100% on R/A; ld1 09:16 BP 113 / 64; Pulse 58; Resp 16; Pulse Ox 99% ; ko1 09:57 BP 116 / 62; Pulse 60; Resp 18; Pulse Ox 100% on R/A; ld1 ED Course: 07:39 Patient arrived in ED. im 07:41 Arm band placed on. aa5 07:46 Valentín Resendez DO is Attending Physician. ms3 07:48 Triage completed. aa5 07:50 Linda Resendez, RN is Primary Nurse. ld1 07:50 Assisted to bathroom. ko1 08:02 Urinalysis w/ reflexes Sent. ko1 08:02 Test, Urine Sent. ko1 08:08 Urinalysis w/ reflexes Sent. ld1 08:08 Test, Urine Sent. ld1 08:08 Lipase Sent. ld1 08:08 CMP Sent. ld1 08:08 CBC with Diff Sent. ld1 08:09 Patient has correct armband on for positive identification. Placed in gown. Bed in low ld1 position. Call light in reach. Side rails up X2. clinical research monitor on. Pulse ox on. NIBP on. Door closed. Noise minimized. Warm blanket given. 08:09 No provider procedures requiring assistance completed. ld1 08:10 Initial lab(s) drawn, by ED staff, sent to lab. Urine collected: clean catch specimen, ko1 myah colored. 09:10 Patient requests pain medication. Notified ERP. ERP waiting on results. ld1 09:16 Provided Education on: NA. ko1 09:58 Patient requests pain medication. mb9 10:34 Zenon Sparrow MD is Referral Physician. ms3 10:41 IV discontinued, intact, bleeding controlled, No redness/swelling at site. Pressure mb9 dressing applied. Administered Medications: 08:08 Drug: Famotidine IVP 20 mg IVP once; dilute with 10 mL 0.9% NaCl; give over 2 minutes ko1 Route: IVP; Site: right antecubital; 08:08 Drug: Ondansetron IVP 4 mg IVP once; over 2 minutes Route: IVP; Site: right antecubital;ko1 10:18 Drug: GI Cocktail with - (Maalox PO 30 ml, Lidocaine Mucous Membrane 2 % 20 mb9 ml, Phenobarbital-Belladonna PO 10 ml) PO once Route: PO; Medication: 08:09 VIS not applicable for this client. ld1 Outcome: 10:34 Discharge ordered by . ms3 10:41 Discharged to home ambulatory, mb9 10:41 Condition: stable 10:41 Discharge instructions given to patient, family, Instructed on discharge instructions, follow up and referral plans. Demonstrated understanding of instructions, follow-up care, medications, Prescriptions given X 1, 10:41 Patient left the ED. mb9 Signatures: Niurka Iqbal RN RN aa5 Valentín Resendez DO DO ms3 Linda Resendez RN RN ld1 Geovanna Cook RN RN ko1 Arabella Cooper RN RN mb9 Cheryl Whitehead Corrections: (The following items were deleted from the chart) 07:47 07:47 PMHx: allergies; seasonal; aa5 aa5
--- NOTE | 2023-12-05 10:34 | EDPHYS ---
Physician Documentation [facility] Name: Suzanne Hernandez Age: 18 yrs Sex: Female : 2005 Arrival Date: 12/05/2023 Time: 07:37 Bed 7 Private MD: ED Physician Valentín Resendez HPI: 12/04 08:03 This 18 yrs old Female presents to ER via Ambulatory with complaints of ms3 Nausea, Abdominal Pain. 08:03 18-year-old female with no past medical history presents to the emergency department ms3 for 1 month history of nausea, vomiting, epigastric abdominal pain. Patient notes she vomited 2 times last night. Patient states her last menstrual period was in October 2023. Patient endorses being lightheaded. Patient rates pain 9/10.. 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 - Infectious Disease History:: Denies. - Social history:: Smoking status: Reported history of juuling and/or vaping. ROS: 08:08 Constitutional: Negative for fever, and chills. Neck: Negative for injury, pain, and ms3 swelling, Cardiovascular: Negative for chest pain, and palpitations. Respiratory: Negative for shortness of breath, cough, wheezing, and pleuritic chest pain, 08:08 Skin: Negative for injury, rash, and discoloration, 08:08 Abdomen/GI: Positive for abdominal pain, nausea and vomiting, Exam: 08:08 Constitutional: This is a well developed, well nourished patient who is awake, alert, ms3 and in no acute distress. Head/Face: Normocephalic, atraumatic. Chest/axilla: Normal chest wall appearance and motion. Nontender with no deformity. Cardiovascular: Regular rate and rhythm with a normal S1 and S2. No gallops, murmurs, or rubs. Normal PMI, no JVD. No pulse deficits. Respiratory: Lungs have equal breath sounds bilaterally, clear to auscultation and percussion. No rales, rhonchi or wheezes noted. No increased work of breathing, no retractions or nasal flaring. 08:08 Abdomen/GI: Inspection: abdomen appears normal, Bowel sounds: normal, Palpation: mild abdominal tenderness, in the epigastric area, Vital Signs: 07:41 BP 117 / 72; Pulse 63; Resp 18 S; Temp 97.8(TE); Pulse Ox 98% on R/A; aa5 08:09 BP 109 / 66; Pulse 56; Resp 18; Pulse Ox 100% on R/A; ld1 09:16 BP 113 / 64; Pulse 58; Resp 16; Pulse Ox 99% ; ko1 09:57 BP 116 / 62; Pulse 60; Resp 18; Pulse Ox 100% on R/A; ld1 MDM: 08:08 Differential diagnosis: Nonspecific abd pain, pancreatitis. ms3 08:13 Patient medically screened. ms3 10:34 Data reviewed: vital signs, nurses notes, lab test result(s), and as a result, I will ms3 discharge patient. I considered the following discharge prescriptions or medication management in the emergency department Medications were administered in the Emergency Department. See MAR. Counseling: I had a detailed discussion with the patient and/or guardian regarding the historical points, exam findings, and any diagnostic results supporting the discharge/admit diagnosis, lab results, the need for outpatient follow up, to return to the emergency department if symptoms worsen or persist or if there are any questions or concerns that arise at home. Special discussion: Based on the patient's Hx, exam, and Dx evaluation, there is no indication for emergent surgery or inpatient Tx. It is understood by the patient/guardian that if the Sx's persist or worsen they need to return immediately for re-evaluation. ED course: Discussed labs with the patient. Patient to follow-up with gastroenterology in 2 to 3 days. Patient understands and agrees with plan. All questions were answered. Return precautions discussed include worsening symptoms, or any other concerns. On reevaluation patient's abdomen remains benign, patient is alert and oriented x 4, no apparent distress, nontoxic-appearing, ambulatory in emergency department. 12/04 07:57 Order name: Test, Urine; Complete Time: 10:05 ms3 12/04 07:57 Order name: CBC with Diff; Complete Time: 10:05 3 12/04 07:57 Order name: CMP; Complete Time: 10:05 ms3 12/04 07:57 Order name: Lipase; Complete Time: 10:05 ms3 12/04 07:57 Order name: Urinalysis w/ reflexes; Complete Time: 10:05 ms3 12/04 08:18 Order name: Urine Culture EDMS 12/04 07:57 Order name: IV Saline Lock; Complete Time: 08:08 ms3 12/04 07:57 Order name: Labs collected and sent; Complete Time: 08:08 ms3 Administered Medications: 08:08 Drug: Famotidine IVP 20 mg IVP once; dilute with 10 mL 0.9% NaCl; give over 2 minutes ko1 Route: IVP; Site: right antecubital; 08:08 Drug: Ondansetron IVP 4 mg IVP once; over 2 minutes Route: IVP; Site: right antecubital;ko1 10:18 Drug: GI Cocktail with - (Maalox PO 30 ml, Lidocaine Mucous Membrane 2 % 20 mb9 ml, Phenobarbital-Belladonna PO 10 ml) PO once Route: PO; Disposition Summary: 12/05/23 10:34 Discharge Ordered Notes: Location: Home ms3 Condition: Stable ms3 Diagnosis - Upper abdominal pain, unspecified ms3 Followup: ms3 - With: Zenon Sparrow MD - When: 2 - 3 days - Reason: Recheck today's complaints Discharge Instructions: - Discharge Summary Sheet ms3 - Abdominal Pain, Adult ms3 Forms: - Medication Reconciliation Form ms3 - Thank You Letter ms3 - Antibiotic Education ms3 - Prescription Opioid Use ms3 - Patient Portal Instructions ms3 - Leadership Thank You Letter ms3 Prescriptions: - Pepcid 20 mg Oral Tablet - take 1 tablet ORAL route every 12 hours for 5 days; 10 tablet; Refills: 0, ms3 Product Selection Permitted Signatures: Dispatcher [employer] Niurka Iqbal RN RN aa5 Valentín Resendez DO DO ms3 Geovanna Cook RN RN ko1 Arabella Cooper RN RN mb9 Corrections: (The following items were deleted from the chart) 07:47 07:47 PMHx: allergies; seasonal; aa5 aa5
[2023-12-05 11:18] VITALS: BP 116/62; TEMP 97.8; O2SAT 100
== END 2023-12-05 10:41 | disposition home or self-care (01) ==
LOC: ER 07:37
DX: R10.13 Epigastric pain (principal)
CPT/HCPCS: 36415; 80053; 81001; 81025; 83690; 85025; 87086; 87088; 96374; 96375; 99285; J2405